=== PATIENT | male | born 1960 | race Caucasian/White ===

== ENCOUNTER 2017-05-16 11:43 | Emergency (ER) | payer SELFPAY ==
[~2017-05-16] VITALS: Ht 185.4 cm; Wt 106.1 kg
[2017-05-16 12:12] LABS: BASOPHILS % (AUTO) 1 % (0-10); EOSINOPHILS # (AUTO) 0.4 10^3/uL (0.0-0.3); EOSINOPHILS % (AUTO) 6 % (0-10); LYMPHOCYTES # (AUTO) 1.6 X 10^3 (1.0-4.0); LYMPHOCYTES % (AUTO) 24 % (12-44); MEAN CORPUSCULAR HEMOGLOBIN 29 PG (25-34); MEAN CORPUSCULAR HGB CONC 34 G/DL (32-36); MEAN CORPUSCULAR VOLUME 86 FL (80-99); MEAN PLATELET VOLUME 9.9 FL (7.4-10.4); MONOCYTES # (AUTO) 0.3 X 10^3 (0.0-1.0); MONOCYTES % (AUTO) 4 % (0-12); NEUTROPHILS # (AUTO) 4.3 X 10^3 (1.8-7.8); NEUTROPHILS % (AUTO) 66 % (42-75); PLATELET COUNT 252 10^3/uL (130-400); RED BLOOD COUNT 4.99 10^6/uL (4.35-5.85); RED CELL DISTRIBUTION WIDTH 14.3 % (10.0-14.5); WHITE BLOOD COUNT 6.6 10^3/uL (4.3-11.0)
[2017-05-16 12:29] LABS: ALBUMIN 4.2 GM/DL (3.2-4.5); BILIRUBIN,TOTAL 0.6 MG/DL (0.1-1.0); CALCIUM 9.6 MG/DL (8.5-10.1); CREATININE SERUM 1.82 MG/DL (0.60-1.30); POTASSIUM 3.9 MMOL/L (3.6-5.0); TOTAL PROTEIN 7.7 GM/DL (6.4-8.2)
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
[2017-05-16 13:17] VITALS: BP 147/99
== END 2017-05-16 13:16 | disposition home or self-care (01) ==
LOC: EDUNIT# 11:43 → ER 11:47
DX: I10 Essential (primary) hypertension (principal); F17.210 Nicotine dependence, cigarettes, uncomplicated
CPT/HCPCS: 36415; 80053; 85025

== ENCOUNTER → 2019-11-05 | Outpatient (CLI) | payer OTHER ==
[2019-11-05 09:13] LABS: ALANINE AMINOTRANSFERASE 21 U/L (0-55); ALBUMIN 4.9 GM/DL (3.2-4.5); ALKALINE PHOSPHATASE 128 U/L (40-136); BILIRUBIN,TOTAL 0.6 MG/DL (0.1-1.0); BUN/CREATININE RATIO 15; CALCIUM 9.8 MG/DL (8.5-10.1); CARBON DIOXIDE 19 MMOL/L (21-32); CHLORIDE 103 MMOL/L (98-107); CHOLESTEROL 237 MG/DL (< 200); CREATININE SERUM 2.81 MG/DL (0.60-1.30); GFR ESTIMATED 23; GLUCOSE 100 MG/DL (70-105); HDL CHOLESTEROL 37 MG/DL (40-60); POTASSIUM 4.8 MMOL/L (3.6-5.0); SODIUM 137 MMOL/L (135-145); TOTAL PROTEIN 8.7 GM/DL (6.4-8.2); TRIGLYCERIDES 217 MG/DL (<150); VLDL CHOLESTEROL 43 MG/DL (5-40)
== END ==
LOC: LAB 08:24
PROVIDERS: ATTEND Nurse Practitioner Family
DX: I10 Essential (primary) hypertension (principal)
CPT/HCPCS: 36415; 80053; 80061

== ENCOUNTER → 2019-11-21 | Outpatient (CLI) | payer OTHER ==
--- NOTE | 2019-11-21 09:26 | Diagnostic Imaging Report ---
PROCEDURE: CT chest without contrast. TECHNIQUE: Multiple contiguous axial images were obtained through the chest without the use of intravenous contrast. Auto Exposure Controls were utilized during the CT exam to meet ALARA standards for radiation dose reduction. All CT scans use one or more of the following dose optimizing techniques: automated exposure control, MA and/or KvP adjustment based on patient size and exam type or iterative reconstruction. INDICATION: Shortness of breath. COMPARISON: No prior studies are available for comparison. FINDINGS: No axillary lymphadenopathy is identified. There is a mildly prominent right paratracheal lymph node measuring 15 mm short axis. Radha is unremarkable. There are some coronary arterial calcifications present. No pericardial or pleural fluid is detected. The central airways are patent. No parenchymal consolidation is seen. There is some minimal atelectasis or scarring in the right lower lobe. Occasional subpleural micronodules in the right upper lobe are identified, 1-2 mm in size, nonspecific. Upper abdomen is unremarkable. IMPRESSION: Nonspecific mildly prominent right paratracheal lymph node. There are also several subpleural micronodules in the right upper lobe, nonspecific. Follow-up CT chest in six months could be performed to confirm stability. No other significant abnormality is detected. Dictated by: Dictated on workstation # [id number]
== END ==
LOC: RAD 07:54
PROVIDERS: ATTEND Nurse Practitioner Family
DX: R91.8 Other nonspecific abnormal finding of lung field (principal); R06.02 Shortness of breath
CPT/HCPCS: 71250

== ENCOUNTER → 2020-03-12 | Outpatient (CLI) | payer OTHER ==
--- NOTE | 2020-03-12 13:47 | Diagnostic Imaging Report ---
PROCEDURE: US Renal Bilateral. TECHNIQUE: Multiple real-time grayscale images were obtained over the kidneys in various projections bilaterally. INDICATION: Chronic kidney disease, stage IV COMPARISON: None available FINDINGS: The right kidney measures 11.2 x 5.1 x 5.7 cm. Normal corticomedullary differentiation. No hydronephrosis. A 3.1 x 2.7 cm rounded thin-walled anechoic cyst with posterior acoustic enhancement is noted within the mid right kidney. The left kidney measures 9.1 x 5.0 x 4.3 cm. Normal corticomedullary differentiation. No evidence of hydronephrosis or solid renal mass. The urinary bladder is unremarkable. The bilateral ureteral jets are visualized. No significant post void residual within the urinary bladder. IMPRESSION: Greater than 2 cm difference in size in the bilateral kidneys. This could relate to renal artery stenosis on the left. Alternatively, the right kidney may be enlarged secondary to potential duplication. If there is clinical concern for renal artery stenosis, renal Doppler ultrasound would be recommended. Right renal cyst. No evidence of hydronephrosis. No significant post void residual within the urinary bladder. Dictated by: Dictated on workstation # [id number]
== END ==
LOC: RAD 10:14
PROVIDERS: ATTEND Nurse Practitioner
DX: I12.9 Hypertensive chronic kidney disease with stage 1 through stage 4 chronic kidney disease, or unspecified chronic kidney disease (principal); N18.4 Chronic kidney disease, stage 4 (severe); R60.9 Edema, unspecified; F19.10 Other psychoactive substance abuse, uncomplicated; E78.5 Hyperlipidemia, unspecified; N28.1 Cyst of kidney, acquired
CPT/HCPCS: 76770

== ENCOUNTER 2020-03-29 11:14 | Emergency (ER) | payer SELFPAY ==
[~2020-03-29] VITALS: Ht 185.4 cm; Wt 111.3 kg
--- OUTSIDE RECORDS SUMMARY | 2020-03-29 11:18 | XMS REPORT ---
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 [employer] [facility] [employer] Address [address] [address] Care Team Providers Care Chargeback Specialist Name Role Phone KELLY LAWTON Unavailable KELLY LAWTON Unavailable JAMES DELEON Unavailable JAMES DELEON Unavailable JAMES DELEON Unavailable DAINA VALERIO Unavailable KATIA MORGAN Unavailable Unavailable BEATRICE GAVIN MD Unavailable Unavailable DAINA VALERIO Unavailable Unavailable DAINA DE LA CRUZ Unavailable Unavailable KATIA MORGAN Unavailable Unavailable Unavailable Unavailable MARYJANE CHAPARRO APRN Unavailable Unavailable Unavailable Unavailable Unavailable Unavailable Unavailable Unavailable Allergies Normalized Allergy Reported Date of Reaction(s) Care Provider Facility Allergy Type classification allergen Allergy Onset DA (1 source.) Unclassified No Known Drug 05-16-2017 - no inform nikos MONTALVO Not Available Allergies LUCERO LOPEZ ([id number]) Medications Current Medications Medication Ingredient Drug Dose Dates Status Sig Sig Care Class(es) (Normalized) (Original) Provid er 24 hr metoprolol beta-Adrene 25 mg 07-02-20 Active no Meto prolol no metoprolol Translation rgic 18 information Succinate E R name succinate s: [ Lawanda 25 MG Orally 25 mg Metoprolol Once a day 1 extended Succinate tablet 24h release ER 25 MG] Jun, oral tablet 30 day(s) (1 source.) Active Completed/Discontinued Medications Medication Ingredient Drug Dose Dates Status Sig Sig Care Class(es) (Normalized) (Original) Provid er hydroCHLORO hydroCHLORO Thiazide 06-21-20 Suspende no Lisino pril-H no thiazide thiazide / Diuretic, 18 d information ydrochlo [place] name 12.5 mg / lisinopril Angiotensin iazide lisinopril Translation Converting 10-12.5 MG 10 mg oral s: [ Enzyme Orally twice tablet (2 Lisinopril- Inhibitor a day 1 sources.) Hydrochloro tablet 12h thiazide Jun, 10-12.5 MG] 30 day(s) Not-Taking sulfamethox sulfamethox Dihydrofola 06-25-20 Suspende no Laura trim DS no azole 800 azole / te 18 - d information 800-160 MG na me mg / trimethopri Reductase 07-05-20 Orally Twice trimethopri m Inhibitor 18 a day 1 m 160 mg Translation Antibacteri tablet 12h oral tablet s: [ al, Jun, (2 Bactrim DS Sulfonamide Jun, sources.) 800-160 MG] Antimicrobi 10 day(s) al Not-Taking Problems Problem Normalized Date Last Normalized Normalized Provider Fa cility Classification Problem(s) Recorded Problem Problem Sta tus Duration Chronic kidney Chronic kidney 03-13-2020 - Chronic Active WYATT ID [facility] disease (12 disease, [address] [facility] sources.) unspecified of [facility] Translations: [place] ([address]35) [ - Chronic kidney disease, unspecified CKD stage N18.9, Chronic kidney disease, unspecified CKD stage, Chronic kidney disease, unspecified CKD stage, Chronic kidney disease, unspecified CKD stage, - Chronic kidney disease, unspecified CKD stage N18.9, CHRONIC KIDNEY DISEASE, STAGE 4 (SEVERE)] Other diseases Cyst of 03-13-2020 - Episodic Active [facility] Via of kidney and kidney, Christina CHAPARRO ureters (2 acquired [facility] Hospital - sources.) [place] ([address]70) Residual Edema, 03-13-2020 - Episodic Active MARYJANE [facility] V ia codes; unspecified Christina CHAPARRO unclassified [facility] Hospital - (2 sources.) [place] ([id number]) Other Elevated 03-12-2020 - Episodic Active KATIA [facility] V ia circulatory blood-pressure LUCERO LOPEZ disease (5 [facility] - sources.) without [place] diagnosis of (34353) hypertension Disorders of Hyperlipidemia 03-13-2020 - Chronic Active AMILCAR Al [facility] Via lipid , unspecified Christina CHAPARRO metabolism (2 [facility] Hospital - sources.) [place] (12592) Hypertension Hypertensive 03-13-2020 - Chronic Active MARYJANE [facility] Via with chronic kidney DOUTHChristina PIKE complications disease with [facility] Hospital - and secondary stage 1 [place] hypertension through stage (79528) (2 sources.) 4 chronic kidney disease, or unspecified chronic kidney disease Other male Impotence of Chronic Active DAINA VALERIO [facility] genital organic origin [address] [facility] disorders (1 Translations: of [facility] source.) [ Erectile [place] (24688) dysfunction, unspecified erectile dysfunction type] Other Lateral Episodic Active KELLY LAWTON [facility] connective epicondylitis, 60383 [facility] tissue disease right elbow of [facility] (20 sources.) Translations: [place] (36978) [ - Lateral epicondylitis of right elbow M77.11, - Right tennis elbow M77.11, - Lateral epicondylitis of right elbow M77.11, - Right tennis elbow M77.11] Other male Male erectile Chronic Active DAINA VALERIO [facility] genital [facility], [address] [facility] disorders (1 unspecified of [facility] source.) Translations: [place] ([address]76) [ - Erectile dysfunction, unspecified erectile dysfunction type N52.9] Substance-rela Nicotine 03-12-2020 - Chronic Active KATIA [facility] Via brandon disorders dependence LUCERO LOPEZ (17 sources.) Translations: Hospital - [ Cigarette [place] nicotine (39857) dependence without complication, - Cigarette nicotine dependence without complication F17.210, Cigarette nicotine dependence without complication, - Cigarette nicotine dependence without complication F17.210, OTHER PSYCHOACTIVE SUBSTANCE ABUSE, UNCO] Other lower Other 03-12-2020 - Episodic Active DAINA ABDI [facility] Via respiratory nonspecific , CFNP Christina disease (6 abnormal Hospital - sources.) finding of [place] lung field (77387) Other Pain in right Episodic Active KELLY LAWTON [facility] non-traumatic elbow [address] [facility] Center joint Translations: of [facility] disorders (5 [ - Right [place] (69778) sources.) elbow pain M25.521, - Right elbow pain M25.521] Other lower Shortness of 03-12-2020 - Episodic Active DAINA VALERIO [facility] Via respiratory breath , CFNP [place] disease (6 Hospital - sources.) [place] (88269) Procedures Procedure Normalized Procedure Procedure Result Performer Facility Date 07-02-2018 Drug test prsmv read no information no name [facility] direct [facility] obs pr [facility] (58775) 07-02-2018 Urnls dip stick/tablet no information no name [facility] rgnt auto w/o [facility] (68681) Immunizations The data below is from unstructured sources No Known Immunizations No Known Immunizations No Known Immunizations No Known Immunizations No Known Immunizations No Known Immunizations No Known Immunizations No Known Immunizations No Known Immunizations Results Test Name Value Interpretation Reference Range Date Time Fa cility (Normalized) (Normalized) (Medline Reference) urine drug screen (in house) on null URINE DRUG 12/2019 (no code) [facility] () URINE DRUG + (no code) [facility] HOUSE[facility] (89813) URINE DRUG Negative (no code) [facility] HOUSE[facility] () URINE DRUG Positive (no code) [facility]IN [facility] of HOUSE) [facility] (91472) URINE DRUG [id number] (no code) [facility]EN (IN [facility] of HOUSE) [facility] () ua long dip (in house) on null Glucose Test Negative (no code) [facility] strip mass conc Center of (U) [facility] (28761) Protein mass trace (no code) [facility] (72595) UA LONG DIP (IN 02/2019 (no code) [facility]) [facility] (00918) UA LONG DIP (IN clear (no code) [facility]) [facility] (20404) UA LONG DIP (IN yellow (no code) [facility]) [facility] (90122) UA LONG DIP (IN no (no code) [facility] HOUSE) [facility] (23852) UA LONG DIP (IN 1.015 (no code) [facility] HOUSE) [facility] (69634) UA LONG DIP (IN trace (no code) [facility]) [facility] (53811) UA LONG DIP (IN 5.0 (no code) [facility]) [facility] (40663) UA LONG DIP (IN [id number] (no code) [facility]) [facility] (48721) UA LONG DIP (IN 0.2 (no code) [facility]) [facility] (15541) not yet categorized on 2020-03-19 A:C (IN HOUSE) ~Clear~Ye (no code) [facility] Hea lth llow~80mg/L~200m [facility] g/L~30-300mg/g [facility] (44977) BLO Trace-lysed (no code) [facility] (09365) KET ~Clear~Ye (no code) [facility] Hea [facility] llow~nONE~Negati [facility] ve~Negative~Nega [facility] tive (08223) JACK Negative (no code) [facility] (67583) Lot # [id number] (no code) [facility] (84545) Lot # [id number] (no code) [facility] (56326) MICROALBUMIN Abnormal (no code) [facility] (35447) SG 1.015 (no code) [facility] (17576) URO 0.2 (no code) [facility] (46545) laboratory on 2020-03-19 Albumin 4.4 g/dL (N) 3.4 - 5.4 g/dL [facility] [Mass/Vol] [facility] (34164) Basophils (Bld) 0.05 10*3/uL (N) 0 - 0.3 10*3/uL [facility] [#/Vol] [facility] (48414) Basophils/100 0.9 % (N) 0.5 - 1 % [facility] alth WBC (Bld) [facility] (33655) Calcidiol 14 ng/mL (L) 20 - 50 ng/mL [facility] ealth [Mass/Vol] [facility] (81160) Calcium 9.1 mg/dL (N) 8.5 - 10.2 mg/dL [facility] [Mass/Vol] [facility] (48077) Chloride 100 mmol/L (N) 95 - 106 mmol/L [facility] [Moles/Vol] [facility] (34575) CO2 [Moles/Vol] 16 mmol/L (L) 23 - 29 mmol/L [facility] (56876) Creatinine 5.43 mg/dL (H) [facility] [Mass/Vol] [facility] (72986) Eosinophils 0.213 10*3/uL (N) 0.05 - 0.5 [facility] alth (Bld) [#/Vol] 10*3/uL [facility] (40557) Eosinophils/100 3.8 % (N) 1 - 4 % [facility] WBC (Bld) [facility] (77989) Erythrocyte 13.9 % (N) 11.6 - 14.6 % [facility] H ealth distribution [facility] (RBC) [facility] [Ratio] (49514) GFR/1.73 sq M 12 (L) 90 - 120 [facility] predicted among mL/min/{1.73_m2} mL/min/{1.73_m2} [place] [facility] blacks MDRD [facility] (S/P/Bld) [Vol (28775) rate/Area] GFR/1.73 sq 11 (L) 90 - 120 [facility] th M.predicted MDRD mL/min/{1.73_m2} mL/min/{1.73_m2} [facility] (S/P/Bld) [Vol [facility] rate/Area] (26792) Glucose 107 mg/dL (H) 60 - 125 mg/dL [facility] [Mass/Vol] [facility] (11150) Hematocrit (Bld) 33.9 % (L) 36.1 - 50.3 % [facility] [Volume [facility]] [facility] (53990) Hemoglobin (Bld) 11.7 g/dL (L) 12.1 - 17.2 g/dL [facility] [Mass/Vol] [facility] (97467) Lymphocytes 1.898 10*3/uL (N) 0.9 - 2.9 Community [facility]th (Bld) [#/Vol] 10*3/uL [facility] (71237) Lymphocytes/100 33.9 % (N) 20 - 40 % [facility] Health WBC (Bld) [facility] (61389) MCH (RBC) 31.3 pg (N) 27 - 31 pg [facility] [Entitic mass] [facility] (22105) MCHC (RBC) 34.5 g/dL (N) 32 - 36 g/dL [facility] He alth [Mass/Vol] [facility] (31591) MCV (RBC) 90.6 fL (N) 80 - 100 fL [facility] Hea lth [Entitic vol] [facility] (71837) Monocytes (Bld) 0.442 10*3/uL (N) 0.3 - 0.9 [facility] [#/Vol] 10*3/uL [facility] (97893) Monocytes/100 7.9 % (N) 2 - 8 % [facility] He alth WBC (Bld) [facility] (09306) Neutrophils 2.996 10*3/uL (N) 1.7 - 7 10*3/uL [facility] Health (Bld) [#/Vol] [facility] (63988) Neutrophils/100 53.5 % (N) 40 - 60 % [facility] WBC (Bld) [facility] (61603) Parathyrin.intac 256 pg/mL (H) 10 - 55 pg/mL [facility] ity Health t [Mass/Vol] [facility] (90798) pH (Bld) 5.0 [pH] (no code) 7.38 - 7.42 [pH] [facility] (89601) Phosphate 7.4 mg/dL (H) 2.4 - 4.1 mg/dL [facility] [Mass/Vol] [facility] (24444) Platelet mean 10.5 fL (N) 7.2 - 11.7 fL [facility] volume (Bld) [facility] [Entitic vol] [facility] (34451) Platelets (Bld) 318 10*3/uL (N) 150 - 450 [facility] [#/Vol] 10*3/uL [facility] (39506) Potassium 5.0 mmol/L (N) 3.7 - 5.2 mmol/L [facility] [Moles/Vol] [facility] (67694) Protein (U) Negative (no code) 0 - 20 mg/dL [facility] He alth [Mass/Vol] [facility] (87746) RBC (Bld) 3.74 10*6/uL (L) 4.2 - 6.1 [facility] Hea lth [#/Vol] 10*6/uL [facility] (79816) Sodium 133 mmol/L (L) 135 - 145 mmol/L [facility] [Moles/Vol] [facility] (15131) Urate [Mass/Vol] 12.3 mg/dL (H) 3.5 - 7.2 mg/dL [facility] (85747) Urea nitrogen 122 mg/dL (H) 7 - 20 mg/dL [facility] [Mass/Vol] [facility] (53986) Urea 22 mg/mg (N) 6 - 22 mg/mg [facility] alth nitrogen/Creatin [facility] [Mass ratio] [facility] (97463) WBC (Bld) 5.6 10*3/uL (N) 3.5 - 10.5 [facility] th [#/Vol] 10*3/uL [facility] (02480) laboratory on 2020-02-17 Albumin 4.7 g/dL (N) 3.4 - 5.4 g/dL [facility] [Mass/Vol] [facility] (17406) Appearance (U) CLEAR (N) [facility] (55749) Bacteria LM.HPF NONE SEEN (N) [facility] th (Urine sed) [facility] [#/Area] [facility] (27059) Basophils (Bld) 0.049 10*3/uL (N) 0 - 0.3 10*3/uL [facility] [#/Vol] [facility] (07150) Basophils/100 0.8 % (N) 0.5 - 1 % [facility] He alth WBC (Bld) [facility] (67558) Bilirubin Ql (U) Negative (N) [facility] (10154) Calcium 9.5 mg/dL (N) 8.5 - 10.2 mg/dL [facility] [Mass/Vol] [facility] (33047) Chloride 103 mmol/L (N) 95 - 106 mmol/L [facility] [Moles/Vol] [facility] (31257) CO2 [Moles/Vol] 18 mmol/L (L) 23 - 29 mmol/L [facility] (05124) Color (U) YELLOW (N) [facility] (21910) Creatinine (U) 155 mg/dL (N) [facility] [Mass/Vol] [facility] (94722) Creatinine 2.84 mg/dL (H) [facility] [Mass/Vol] [facility] (67890) Eosinophils 0.22 10*3/uL (N) 0.05 - 0.5 [facility] Hea lth (Bld) [#/Vol] 10*3/uL [facility] (95356) Eosinophils/100 3.6 % (N) 1 - 4 % [facility] WBC (Bld) [facility] (51281) Epithelial NONE SEEN (N) [facility] cells.squamous [facility] LM.HPF (Urine [facility] sed) [#/Area] (06296) Erythrocyte 15.6 % (H) 11.6 - 14.6 % Community [facility] ealth distribution [facility] width (RBC) [facility] [Ratio] (00484) GFR/1.73 sq M 27 (L) 90 - 120 [facility] He alth predicted among mL/min/{1.73_m2} mL/min/{1.73_m2} [facility] [place] MDRD [facility] (S/P/Bld) [Vol (73332) rate/Area] GFR/1.73 sq 24 (L) 90 - 120 [facility] M.predicted MDRD mL/min/{1.73_m2} mL/min/{1.73_m2} [facility] (S/P/Bld) [Vol [facility] rate/Area] (34059) Glucose 95 mg/dL (N) 60 - 125 mg/dL [facility] [Mass/Vol] [facility] (59386) Glucose Ql (U) Negative (N) [facility] (51458) Hematocrit (Bld) 36.9 % (L) 36.1 - 50.3 % [facility] [Volume [facility]] [facility] (60665) Hemoglobin (Bld) 13.0 g/dL (L) 12.1 - 17.2 g/dL [facility] [Mass/Vol] [facility] (61072) Hemoglobin Ql Negative (N) [facility] (U) [facility] (80328) Hyaline casts NONE SEEN (N) [facility] (Urine sed) [facility] [#/Area] [facility] (06581) Ketones Ql (U) Negative (N) [facility] (77661) Leukocyte Negative (N) [facility] esterase Test [facility] Ql (U) [facility] (06282) Lymphocytes 2.117 10*3/uL (N) 0.9 - 2.9 [facility] alth (Bld) [#/Vol] 10*3/uL [facility] (23154) Lymphocytes/100 34.7 % (N) 20 - 40 % [facility] WBC (Bld) [facility] (37754) MCH (RBC) 31.8 pg (N) 27 - 31 pg [facility] [Entitic mass] [facility] (18510) MCHC (RBC) 35.2 g/dL (N) 32 - 36 g/dL [facility] [Mass/Vol] [facility] (98255) MCV (RBC) 90.2 fL (N) 80 - 100 fL [facility] Hea lth [Entitic vol] [facility] (15082) Monocytes (Bld) 0.433 10*3/uL (N) 0.3 - 0.9 [facility] [#/Vol] 10*3/uL [facility] (70669) Monocytes/100 7.1 % (N) 2 - 8 % [facility] WBC (Bld) [facility] (65691) Neutrophils 3.282 10*3/uL (N) 1.7 - 7 10*3/uL [facility] (Bld) [#/Vol] [facility] (23302) Neutrophils/100 53.8 % (N) 40 - 60 % [facility] Health WBC (Bld) [facility] (88264) Nitrite Ql (U) Negative (N) [facility] (98206) pH (U) 5.5 [pH] (N) 4.6 - 8 [pH] [facility] (26476) Phosphate 3.4 mg/dL (N) 2.4 - 4.1 mg/dL [facility] [Mass/Vol] [facility] (30827) Platelet mean 10.7 fL (N) 7.2 - 11.7 fL [facility] volume (Bld) [facility] [Entitic vol] [facility] (93292) Platelets (Bld) 278 10*3/uL (N) 150 - 450 [facility] [#/Vol] 10*3/uL [facility] (97392) Potassium 5.0 mmol/L (N) 3.7 - 5.2 mmol/L [facility] [Moles/Vol] [facility] (87945) Protein (U) 22 mg/dL (N) 0 - 20 mg/dL [facility] [Mass/Vol] [facility] (37648) Protein Ql (U) Negative (N) [facility] (84440) Protein/Creatini 142 (H) [facility] ne (U) [Mass [facility] (06369) RBC (Bld) 4.09 10*6/uL (L) 4.2 - 6.1 [facility] [#/Vol] 10*6/uL [facility] (82033) RBC LM.HPF 0-2 (N) [facility] (Urine sed) [facility] [#/Area] [facility] (00235) Sodium 131 mmol/L (L) 135 - 145 mmol/L [facility] [Moles/Vol] [facility] (55126) Specific gravity 1.015 (N) [facility] Hea lth (U) [Rel [facility]] [facility] (27274) Urea nitrogen 41 mg/dL (H) 7 - 20 mg/dL [facility] [Mass/Vol] [facility] (96093) Urea 14 mg/mg (N) 6 - 22 mg/mg [facility] He alth nitrogen/Creatin [facility] [Mass ratio] [facility] (00047) WBC (Bld) 6.1 10*3/uL (N) 3.5 - 10.5 [facility] [#/Vol] 10*3/uL [facility] (39932) WBC LM.HPF 0-5 (N) [facility] (Urine sed) [facility] [#/Area] [facility] (67540) laboratory on 2020-01-17 Albumin 4.6 g/dL (N) 3.4 - 5.4 g/dL [facility] [Mass/Vol] [facility] (77631) Basophils (Bld) 0.032 10*3/uL (N) 0 - 0.3 10*3/uL [facility] [#/Vol] [facility] (12749) Basophils/100 0.6 % (N) 0.5 - 1 % [facility] alth WBC (Bld) [facility] (65189) Calcium 9.4 mg/dL (N) 8.5 - 10.2 mg/dL [facility] [Mass/Vol] [facility] (94009) Chloride 104 mmol/L (N) 95 - 106 mmol/L [facility] [Moles/Vol] [facility] (19385) Cholesterol 230 mg/dL (H) 180 - 200 mg/dL [facility] [Mass/Vol] [facility] (79579) Cholesterol in 30 mg/dL (L) [facility] h HDL [Mass/Vol] [facility] (00020) Cholesterol in 0 mg/dL (no code) 0 - 100 mg/dL [facility] LDL [Mass/Vol] [facility] (43887) Cholesterol non 200 mg/dL (H) [facility] HDL [Mass/Vol] [facility] (50694) Cholesterol.tota 7.7 {ratio} (H) [facility] lth l/Cholesterol in [facility] HDL [Mass ratio] [facility] (29838) CO2 [Moles/Vol] 23 mmol/L (N) 23 - 29 mmol/L [facility] (33769) Creatinine 2.73 mg/dL (H) [facility] h [Mass/Vol] [facility] (58465) Eosinophils 0.243 10*3/uL (N) 0.05 - 0.5 [facility] alth (Bld) [#/Vol] 10*3/uL [facility] (79178) Eosinophils/100 4.5 % (N) 1 - 4 % [facility] WBC (Bld) [facility] (90783) Erythrocyte 15.3 % (H) 11.6 - 14.6 % Community [facility] ealth distribution [facility] width (RBC) [facility] [Ratio] (82025) GFR/1.73 sq M 29 (L) 90 - 120 [facility] predicted among mL/min/{1.73_m2} mL/min/{1.73_m2} [place] [facility] blacks MDRD [facility] (S/P/Bld) [Vol (14672) rate/Area] GFR/1.73 sq 25 (L) 90 - 120 [facility] th M.predicted MDRD mL/min/{1.73_m2} mL/min/{1.73_m2} [facility] (S/P/Bld) [Vol [facility] rate/Area] (02934) Glucose 150 mg/dL (H) 60 - 125 mg/dL [facility] [Mass/Vol] [facility] (00697) Hematocrit (Bld) 39.9 % (N) 36.1 - 50.3 % [facility] ity Health [Volume [facility] (15412) Hemoglobin (Bld) 13.9 g/dL (N) 12.1 - 17.2 g/dL [facility] [Mass/Vol] [facility] (04979) Lymphocytes 1.642 10*3/uL (N) 0.9 - 2.9 Community [facility]th (Bld) [#/Vol] 10*3/uL [facility] (84870) Lymphocytes/100 30.4 % (N) 20 - 40 % [facility] Health WBC (Bld) [facility] (73068) MCH (RBC) 31.0 pg (N) 27 - 31 pg [facility] th [Entitic mass] [facility] (29860) MCHC (RBC) 34.8 g/dL (N) 32 - 36 g/dL [facility] He alth [Mass/Vol] [facility] (87041) MCV (RBC) 89.1 fL (N) 80 - 100 fL [facility] Hea lth [Entitic vol] [facility] (47185) Monocytes (Bld) 0.324 10*3/uL (N) 0.3 - 0.9 [facility] [#/Vol] 10*3/uL [facility] (01929) Monocytes/100 6.0 % (N) 2 - 8 % [facility] WBC (Bld) [facility] (70241) Neutrophils 3.159 10*3/uL (N) 1.7 - 7 10*3/uL [facility] Health (Bld) [#/Vol] [facility] (03361) Neutrophils/100 58.5 % (N) 40 - 60 % [facility] Health WBC (Bld) [facility] (27177) Phosphate 3.2 mg/dL (N) 2.4 - 4.1 mg/dL [facility] [Mass/Vol] [facility] ([id number]) Platelet mean 10.4 fL (N) 7.2 - 11.7 fL [facility] volume (Bld) [facility] [Entitic vol] [facility] (87798) Platelets (Bld) 252 10*3/uL (N) 150 - 450 [facility] [#/Vol] 10*3/uL [facility] (84510) Potassium 5.2 mmol/L (N) 3.7 - 5.2 mmol/L [facility] [Moles/Vol] [facility] (29317) RBC (Bld) 4.48 10*6/uL (N) 4.2 - 6.1 [facility] [#/Vol] 10*6/uL [facility] (23048) Sodium 133 mmol/L (L) 135 - 145 mmol/L [facility] [Moles/Vol] [facility] (60027) Triglyceride 496 mg/dL (H) 0 - 150 mg/dL [facility] [Mass/Vol] [facility] (37368) TSH Qn 0.79 m[IU]/L (N) 0.4 - 4 m[IU]/L [facility] (79231) Urea nitrogen 56 mg/dL (H) 7 - 20 mg/dL [facility] [Mass/Vol] [facility] (53489) Urea 21 mg/mg (N) 6 - 22 mg/mg [facility] alth nitrogen/Creatin [facility] [Mass ratio] [facility] (57113) WBC (Bld) 5.4 10*3/uL (N) 3.5 - 10.5 [facility] [#/Vol] 10*3/uL [facility] (17406) urinalysis on 2018-07-02 Protein mass trace (no code) [facility] conc (U) [facility] (91348) other on 2018-07-02 BLO trace (no code) [facility] (14939) KET 02/2019~clear~ye (no code) [facility]~no~negative [facility] ~negative~negati [facility] ve (41302) JACK Negative (no code) [facility] (98744) Lot # [id number] (no code) [facility] (23142) SG 1.015 (no code) [facility] (74185) TCA [id number]~12/26 (no code) [facility] 20~+~neg~positiv [facility] e~neg~neg~neg~ne [facility] g~neg~neg~neg~po (22696) sitive~neg~neg~n eg URO 0.2 (no code) [facility] (98493) hematology on 2018-07-02 pH (Bld) 5.0 [pH] (no code) 7.38 - 7.42 [pH] [facility] (37668) other on 2018-06-21 CRYSTALS, NONE SEEN (N) [facility] SYNOVIAL FLUID [facility] (15356) imm/path on 2018-06-21 Bacteria SEE NOTE (no code) [facility] identified Aer [facility] cx Nom (Unsp [facility] spec) ([id number]) Bacteria SEE NOTE (A) no information identified Anaer cx Nom (Unsp spec) Specimen source RIGHT ELBOW (no code) [facility] Nom (Unsp spec) FLUID [facility] (39151) other on 2017-05-16 Albumin/Globulin 1.3 {ratio} (no code) 1 - 2.5 {ratio} 7 Not Available [Mass ratio] 09:53-0400 (64405) Globulin (S) 3.4 g/dL (no code) 2 - 3.5 g/dL 05-16-2017 Not Av ailable [Mass/Vol] 09:53-0400 (54745) metabolic panel on 2017-05-16 Albumin 4.3 g/dL (no code) 3.4 - 5.4 g/dL 05-16-2017 Not Bambi ilable [Mass/Vol] 09:53-0400 (87851) ALP [Catalytic 92 U/L (no code) 44 - 147 U/L 05-16-2017 Not Available activity/Vol] 09:53-0400 (37471) ALT [Catalytic 16 U/L (no code) 4 - 40 U/L 05-16-2017 Not Av ailable activity/Vol] 09:53-0400 (06156) AST [Catalytic 37 U/L (no code) 10 - 34 U/L 05-16-2017 Not A vailable activity/Vol] 09: (71211) Bilirubin 0.3 mg/dL (no code) 0.1 - 1.2 mg/dL 05-16-2017 Not Av ailable [Mass/Vol] 09: (87382) Calcium 10.0 mg/dL (no code) 8.5 - 10.2 mg/dL 05-16-2017 Not Available [Mass/Vol] 09: (70395) Chloride 103 mmol/L (no code) 95 - 106 mmol/L 05-16-2017 Not A vailable [Moles/Vol] 09: (03195) CO2 [Moles/Vol] 15 mmol/L (L) 23 - 29 mmol/L 05-16-2017 N ot Available 09: () Creatinine 1.73 mg/dL (H) 05-16-2017 Not Available [Mass/Vol] 09: (09790) GFR/1.73 sq M 51 (L) 90 - 120 05-16-2017 Not Avai lable predicted among mL/min/{1.73_m2} mL/min/{1.73_m2} 09: (69235) blacks MDRD (S/P/Bld) [Vol rate/Area] GFR/1.73 sq M 44 (L) 90 - 120 05-16-2017 Not Avai lable predicted among mL/min/{1.73_m2} mL/min/{1.73_m2} 09: (84077) non-blacks MDRD (S/P/Bld) [Vol rate/Area] Glucose 88 mg/dL (no code) 60 - 125 mg/dL 05-16-2017 Not Bambi ilable [Mass/Vol] 09: (59135) Potassium 6.9 mmol/L (>) 3.7 - 5.2 mmol/L 05-16-2017 Not Available [Moles/Vol] 09: (93455) Protein 7.7 g/dL (no code) 6.4 - 8.3 g/dL 05-16-2017 Not Bambi ilable [Mass/Vol] 09: (57484) Sodium 142 mmol/L (no code) 135 - 145 mmol/L 05-16-2017 Not Available [Moles/Vol] 09: (42827) Urea nitrogen 15 mg/dL (no code) 7 - 20 mg/dL 05-16-2017 Not A vailable [Mass/Vol] : (83989) Urea 9 mg/mg (no code) 6 - 22 mg/mg 05-16-2017 Not Avail able nitrogen/Creatin 09: (55709) ine [Mass ratio] Vital Signs Vital Sign Value Interpretation Reference Date Time Care [facility] ider Facility (Normalized) (Normalized) Range BMI (Body Mass 31.22 kg/m2 (no code) 15 - 25 kg/m2 07-02-2018 N [facility] Index) 16:00-[address] ([address]) BMI (Body Mass 29.55 kg/m2 (no code) 15 - 25 kg/m2 06-25-2018 N [facility] Community Index) 12:20-[address] ([address]) Body 97.6 [degF] (no code) 97.8 - 99.0 07-02-2018 JAMES ALEJO JIMENEZ [facility] Temperature [degF] 16:00-[address] ([address]) Body 99 [degF] (no code) 97.8 - 99.0 06-25-2018 JAMES Hart [facility] Temperature [degF] 12:200400 [address] ([address]993) Height 183.52 cm (no code) cm 07-02-2018 [facility] 16:00-[address] ([address]) Height 183.52 cm (no code) cm 06-25-2018 [facility] 12:20-[address] ([address]) Pulse Oximetry 0 % (no code) 95 - 100 % 07-02-2018 JAMES TURNER [facility] 16:00-0400 [facility] [address] [facility] ([address]307) Weight 105.14 kg (no code) kg 07-02-2018 JAMES VAUGHAN [facility] 16:00-[address] ([address]) Weight 99.52 kg (no code) kg 06-25-2018 JAMES [facility] 12:20-[address] ([address]) Interventions No Information Plan of Treatment The data below is from unstructured sources Discharge Date 05/16/17 1:16pm Disposition 01 HOME, SELF-CARE Condition at Discharge Improved Instructions/Education Provided High Blood Pressure (DC) Prescriptions See Medication Section Referrals KELLY LAWTON MD Order Date: Primary Care Physician Address: [facility] [place], [place] [id number] Additional Instructions/Education Al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
--- OUTSIDE RECORDS SUMMARY | 2020-03-29 11:18 | XMS REPORT | Continuity of Care Document ---
Author Organization Unknown Address Unknown Phone Unavailable Allergies Active Description Code Type Severity Reaction Onset Reported/Identified Relationship to Patient Clinical Status Yes No Known Drug Allergies [id number] Drug Allergy Unknown N/A 05/16/2017 Medications There is no data. Problems Date Dx Coded Attending Type Code Diagnosis Diagnosed By 05/16/2017 KATIA MORGAN Ot F17.210 NICOTINE DEPENDENCE, CIGARETTES, UNCOMPL 05/16/2017 KATIA MORGAN Ot I 10 ESSENTIAL (PRIMARY) HYPERTENSION 05/16/2017 KATIA MORGAN Ot R03.0 ELEVATED BLOOD-PRESSURE READING, W/O RASHMI 05/18/2017 KATIA MORGAN Ot F17.210 NICOTINE DEPENDENCE, CIGARETTES, UNCOMPL 05/18/2017 KATIA MORGAN Ot I 10 ESSENTIAL (PRIMARY) HYPERTENSION 05/18/2017 KATIA MORGAN Ot R03.0 ELEVATED BLOOD-PRESSURE READING, W/O RASHMI 11/07/2019 VALERIO, DAINA R CFNP Ot I10 ESSENTIAL (PRIMARY) HYPERTENSION 11/22/2019 VALERIO, DAINA R CFNP Ot R06.02 SHORTNESS OF BREATH 11/22/2019 VALERIO, DAINA R CFNP Ot R91.8 OTHER NONSPECIFIC ABNORMAL FINDING OF ZANA 11/27/2019 VALERIO, DAINA R CFNP Ot R06.02 SHORTNESS OF BREATH 11/27/2019 VALERIO, DAINA R CFNP Ot R91.8 OTHER NONSPECIFIC ABNORMAL FINDING OF ZANA 12/17/2019 VALERIO, DAINA R CFNP Ot I10 ESSENTIAL (PRIMARY) HYPERTENSION 12/17/2019 VALERIO, DAINA R CFNP Ot R06.02 SHORTNESS OF BREATH 12/17/2019 VALERIO, DAINA R CFNP Ot R91.8 OTHER NONSPECIFIC ABNORMAL FINDING OF ZANA 12/17/2019 VALERIO, DAINA R CFNP Ot R06.02 SHORTNESS OF BREATH 12/17/2019 VALERIO, DAINA R CFNP Ot R91.8 OTHER NONSPECIFIC ABNORMAL FINDING OF ZANA 12/18/2019 DAINA VALERIO CFNP Ot R06.02 SHORTNESS OF BREATH 12/18/2019 DAINA VALERIO CFNP Ot R91.8 OTHER NONSPECIFIC ABNORMAL FINDING OF ZANA 03/12/2020 DAINA VALERIO CFNP Ot I10 ESSENTIAL (PRIMARY) HYPERTENSION 03/12/2020 DAINA VALERIO CFNP Ot R06.02 SHORTNESS OF BREATH 03/12/2020 DAINA VALERIO CFNP Ot R91.8 OTHER NONSPECIFIC ABNORMAL FINDING OF ZANA 03/13/2020 DODAVIDMARYJANE PIKE HOOKMAN Ot E78.5 HYPERLIPIDEMIA, UNSPECIFIED 03/13/2020 DOUTHMARYJANE PIKE HOOKMAN Ot F19.10 OTHER PSYCHOACTIVE SUBSTANCE ABUSE, UNCO 03/13/2020 MARYJANE CHAPARRO HOOKMAN Ot I12.9 HYPERTENSIVE CHRONIC KIDNEY DISEASE W ST 03/13/2020 DOMARYJANE COURTNEY HOOKMAN Ot N18.4 CHRONIC KIDNEY DISEASE, STAGE 4 (SEVERE) 03/13/2020 MARYJANE CHAPARRO HOOKMAN Ot N28.1 CYST OF KIDNEY, ACQUIRED 03/13/2020 DOUTHMARYJANE PIKE HOOKMAN Ot R60.9 EDEMA, UNSPECIFIED 03/17/2020 DOMARYJANE COURTNEY HOOKMAN Ot E78.5 HYPERLIPIDEMIA, UNSPECIFIED 03/17/2020 DOUTHMARYJANE PIKE HOOKMAN Ot F19.10 OTHER PSYCHOACTIVE SUBSTANCE ABUSE, UNCO 03/17/2020 MARYJANE CHAPARRO HOOKMAN Ot I12.9 HYPERTENSIVE CHRONIC KIDNEY DISEASE W ST 03/17/2020 MARYJANE CHAPARRO HOOKMAN Ot N18.4 CHRONIC KIDNEY DISEASE, STAGE 4 (SEVERE) 03/17/2020 UTHMARYJANE PIKE HOOKMAN Ot N28.1 CYST OF KIDNEY, ACQUIRED 03/17/2020 DOUTHMARYJANE PIKE HOOKMAN Ot R60.9 EDEMA, UNSPECIFIED Procedures There is no data. Results Test Result Range Complete blood count (CBC) with automate d white blood cell (WBC) differential - 05/16/17 12:03 Blood leukocytes automated count (number/volume) 6.6 10*3/uL 4.3-11.0 Blood erythrocytes automated count (number/volume) 4.99 10*6/uL 4.35-5.85 Venous blood hemoglobin measurement (mass/volume) 14.6 g/dL 13.3-17.7 Blood hematocrit (volume fraction) 43 % 40-54 Automated erythrocyte mean corpuscular volume 86 [ foz_us] 80-99 Automated erythrocyte mean corpuscular h emoglobin (mass per erythrocyte) 29 pg 25-34 Automated erythrocyte mean corpuscular h emoglobin concentration measurement (mass/volume) 34 g/dL 32-36 Automated erythrocyte distribution width ratio 14. 3 % 10.0- 14.5 Automated blood platelet count (count/volume) 252 10*3/uL 130-400 Automated blood platelet mean volume measurement 9.9 [foz_us] 7.4-10.4 Automated blood neutrophils/100 leukocytes 66 % 42-75 Automated blood lymphocytes/100 leukocytes 24 % 12-44 Blood monocytes/100 leukocytes 4 % 0-12 Automated blood eosinophils/100 leukocytes 6 % 0-10 Automated blood basophils/100 leukocytes 1 % 0-10 Blood neutrophils automated count (number/volume) 4.3 10*3 1.8-7.8 Blood lymphocytes automated count (number/volume) 1.6 10*3 1.0-4.0 Blood monocytes automated count (number/volume) 0. 3 10*3 0.0-1.0 Automated eosinophil count 0.4 10*3/uL 0 .0-0.3 Automated blood basophil count (count/volume) 0.0 10*3/uL 0.0-0.1 Comprehensive metabolic panel - 05/16/17 12:03 Serum or plasma sodium measurement (moles/volume) 138 mmol/L 135-145 Serum or plasma potassium measurement (moles/volume) 3.9 mmol/L 3.6-5.0 Serum or plasma chloride measurement (moles/volume) 104 mmol/L 98-107 Carbon dioxide 22 mmol/L 21-32 Serum or plasma anion gap determination (moles/volume) 12 mmol/L 5-14 Serum or plasma urea nitrogen measurement (mass/volume ) 16 mg/dL 7-18 Serum or plasma creatinine measurement (mass/volume) 1.82 mg/dL 0.60-1.30 Serum or plasma urea nitrogen/creatinine mass ratio 9 NRG Serum or plasma creatinine measurement w ith calculation of estimated glomerular filtration rate 39 NRG Serum or plasma glucose measurement (mass/volume) 165 mg/dL 70-105 Serum or plasma calcium measurement (mass/volume) 9.6 mg/dL 8.5-10.1 Serum or plasma total bilirubin measurement (mass/volu me) 0.6 mg/dL 0.1-1.0 Serum or plasma alkaline phosphatase genevieve surement (enzymatic activity/volume) 94 U/L 40-136 Serum or plasma aspartate aminotransfera se measurement (enzymatic activity/volume) 18 U/L 5-34 Serum or plasma alanine aminotransferase measurement (enzymatic activity/volume) 18 U/L 0-55 Serum or plasma protein measurement (mass/volume) 7.7 g/dL 6.4-8.2 Serum or plasma albumin measurement (mass/volume) 4.2 g/dL 3.2-4.5 Comprehensive metabolic panel - 11/05/19 08:51 Serum or plasma sodium measurement (moles/volume) 137 mmol/L 135-145 Serum or plasma potassium measurement (moles/volume) 4.8 mmol/L 3.6-5.0 Serum or plasma chloride measurement (moles/volume) 103 mmol/L 98-107 Carbon dioxide 19 mmol/L 21-32 Serum or plasma anion gap determination (moles/volume) 15 mmol/L 5-14 Serum or plasma urea nitrogen measurement (mass/volume ) 43 mg/dL 7-18 Serum or plasma creatinine measurement (mass/volume) 2.81 mg/dL 0.60-1.30 Serum or plasma urea nitrogen/creatinine mass ratio 15 NRG Serum or plasma creatinine measurement w ith calculation of estimated glomerular filtration rate 23 NRG Serum or plasma glucose measurement (mass/volume) 100 mg/dL 70-105 Serum or plasma calcium measurement (mass/volume) 9.8 mg/dL 8.5-10.1 Serum or plasma total bilirubin measurement (mass/volu me) 0.6 mg/dL 0.1-1.0 Serum or plasma alkaline phosphatase genevieve surement (enzymatic activity/volume) 128 U/L 40-136 Serum or plasma aspartate aminotransfera se measurement (enzymatic activity/volume) 22 U/L 5-34 Serum or plasma alanine aminotransferase measurement (enzymatic activity/volume) 21 U/L 0-55 Serum or plasma protein measurement (mass/volume) 8.7 g/dL 6.4-8.2 Serum or plasma albumin measurement (mass/volume) 4.9 g/dL 3.2-4.5 Lipid 1996 panel - 11/05/19 08:51 Serum or plasma triglyceride measurement (mass/volume) 217 mg/dL <150 Serum or plasma cholesterol measurement (mass/volume) 237 mg/dL < 200 Serum or plasma cholesterol in HDL measurement (mass/v olume) 37 mg/dL 40-60 Cholesterol in LDL [mass/volume] in serum or plasma by direct assay 164 mg/dL 1-129 Serum or plasma cholesterol in VLDL measurement (mass/ volume) 43 mg/dL 5-40 Encounters ACCT No. Visit Date/Time Discharge Status Pt. Type Provider Facility Loc./Unit Complaint [id number] 03/12/2020 10:14:00 23:59:59 CLS Outpatient MARYJANE CHAPARRO APRN [facility] RAD CKD STAGE IV [id number] 11/21/2019 07:54:00 020 23:59:59 CLS Outpatient DAINA VALERIO [facility] RAD SOB [id number] 11/05/2019 08:24:00 019 23:59:59 CLS Outpatient DAINA VALERIO [facility] LAB HYPERTENSION [id number] 05/16/2017 11:47:00 017 13:16:00 DIS Emergency KATIA MORGAN [facility] ER HIGH POTASSIUM
[2020-03-29] MEDS ORDERED: PRD20T PO (11:26)
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
[2020-03-29] MEDS ORDERED: diphenhydrAMINE 50 MG/ML INJ (BENADRYL) IM ONE (11:30)
[2020-03-29] MEDS ORDERED: DEXAMETHASONE 10 MG/ML (DECADRON) 1 ML VIAL IM ONE (11:30)
[2020-03-29] MEDS ORDERED: LOSA50TA63 PO (11:32)
[2020-03-29 12:04] VITALS: BP 149/89
== END 2020-03-29 12:03 | disposition home or self-care (01) ==
LOC: ER 11:14 → EDUNIT# 11:14 → ER 12:03
DX: T78.3XXA Angioneurotic edema, initial encounter (principal)
CPT/HCPCS: 99284

== ENCOUNTER → 2021-01-26 | Outpatient (CLI) | payer SELFPAY ==
[~2021-01-26] MED LIST: LOSA50TA63 PO; PRD20T PO
[2021-01-26 11:58] LABS: ALANINE AMINOTRANSFERASE 23 U/L (0-55); ALBUMIN 4.8 GM/DL (3.2-4.5); ALKALINE PHOSPHATASE 147 U/L (40-136); BILIRUBIN,TOTAL 0.4 MG/DL (0.1-1.0); BUN/CREATININE RATIO 12; CALCIUM 10.1 MG/DL (8.5-10.1); CARBON DIOXIDE 23 MMOL/L (21-32); CHLORIDE 101 MMOL/L (98-107); CREATININE SERUM 2.47 MG/DL (0.60-1.30); GFR ESTIMATED 27; GLUCOSE 102 MG/DL (70-105); POTASSIUM 5.7 MMOL/L (3.6-5.0); SODIUM 133 MMOL/L (135-145); TOTAL PROTEIN 8.9 GM/DL (6.4-8.2)
--- NOTE | 2021-01-26 13:53 | Diagnostic Imaging Report ---
PROCEDURE: CT neck soft tissue without contrast. TECHNIQUE: Multiple contiguous axial images were obtained through the neck without the use of intravenous contrast. Auto Exposure Controls were utilized during the CT exam to meet ALARA standards for radiation dose reduction. INDICATION: Difficulty swallowing. COMPARISON: I have no relevant comparison. FINDINGS: The visualized orbits, paranasal sinuses, and intracranial contents are unremarkable. The visualized mastoids are clear. The central skull base is intact. There are degenerative changes to the lower cervical spine without high-grade stenosis. No bony destructive process or fracture. There are heavy vascular calcifications in the carotid bulbs and bifurcations, greater right. The prevertebral and retropharyngeal spaces are normal. The nasopharynx, oropharynx, and hypopharynx appear unremarkable. No pathological-appearing cervical lymph nodes. No mass or fluid collection is identified. No focal inflammatory process. The parotid, submandibular, and thyroid glands are unremarkable. The thoracic inlet, supraclavicular fossa, and visualized pulmonary apices are remarkable. IMPRESSION: This is an unremarkable soft tissue neck CT. No adenopathy, mass, fluid collection, or airway embarrassment. Dictated by: Dictated on workstation # [id number]
== END ==
LOC: RAD 10:12
PROVIDERS: ATTEND Nurse Practitioner Family
DX: R22.1 Localized swelling, mass and lump, neck (principal)
CPT/HCPCS: 36415; 70490; 80053

== ENCOUNTER 2022-01-09 17:19 | Emergency (ER) | payer MEDICAID ==
[~2022-01-09] VITALS: Ht 182 cm; Wt 113.0 kg
[2022-01-09] MEDS ORDERED: RT--FLUTICASONE/SALMETEROL 113-14 (AIRDUO RespiCLICK) IH ONE (18:23)
--- NOTE | 2022-01-09 18:28 | Diagnostic Imaging Report ---
INDICATION: Fever and dyspnea. EXAMINATION: Single AP view of the chest was obtained. FINDINGS: There is mild blunting of the right costophrenic sulcus. Heart size is at the upper limits of normal. There is no evidence of pneumothorax or consolidation. IMPRESSION: Mild cardiomegaly with blunting of the right costophrenic sulcus which could be due to atelectasis or mild pleural effusion. Dictated by: Dictated on workstation # [id number]
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
[2022-01-09] MEDS ORDERED: ACETAMINOPHEN 500 MG TAB (TYLENOL) ONE (18:37)
[2022-01-09] MEDS ORDERED: IBUPROFEN 800 MG (MOTRIN) TAB PO ONE ×2 (18:37→18:45)
[2022-01-09] MEDS ORDERED: ACETAMINOPHEN 500 MG TAB (TYLENOL) PO ONE (18:45)
[2022-01-09] MEDS ORDERED: OSELTAMIVIR 75 MG (TAMIFLU) CAPSULE PO ONE (19:00)
[2022-01-09 19:47] LABS: BASOPHILS # (AUTO) 0.1 10^3/uL (0.0-0.1); BASOPHILS % (AUTO) 1 % (0-10); EOSINOPHILS # (AUTO) 0.2 10^3/uL (0.0-0.3); EOSINOPHILS % (AUTO) 2 % (0-10); HEMATOCRIT 43 % (40-54); HEMOGLOBIN 14.4 g/dL (13.3-17.7); LYMPHOCYTES # (AUTO) 0.9 10^3/uL (1.0-4.0); LYMPHOCYTES % (AUTO) 13 % (12-44); MEAN CORPUSCULAR HEMOGLOBIN 30 pg (25-34); MEAN CORPUSCULAR HGB CONC 34 g/dL (32-36); MEAN CORPUSCULAR VOLUME 89 fL (80-99); MEAN PLATELET VOLUME 9.7 fL (9.0-12.2); MONOCYTES # (AUTO) 0.5 10^3/uL (0.0-1.0); MONOCYTES % (AUTO) 7 % (0-12); NEUTROPHILS # (AUTO) 5.3 10^3/uL (1.8-7.8); NEUTROPHILS % (AUTO) 77 % (42-75); PLATELET COUNT 186 10^3/uL (130-400); WHITE BLOOD COUNT 6.9 10^3/uL (4.3-11.0)
[2022-01-09 19:51] LABS: BILIRUBIN,URINE NEGATIVE (NEGATIVE); CLARITY,URINE CLEAR; COLOR,URINE YELLOW; GLUCOSE, URINE (UA) NEGATIVE (NEGATIVE); KETONES,URINE NEGATIVE (NEGATIVE); LEUKOCYTE ESTERASE ,URINE NEGATIVE (NEGATIVE); NITRITE,URINE NEGATIVE (NEGATIVE); PROTEIN,URINE 1+ (NEGATIVE)
[2022-01-09 19:56] LABS: ALBUMIN 4.2 GM/DL (3.2-4.5)
[2022-01-09 19:58] LABS: CALCIUM 9.3 MG/DL (8.5-10.1); PROTHROMBIN TIME PATIENT 13.9 SEC (12.2-14.7)
[2022-01-09 19:59] LABS: TOTAL PROTEIN 7.5 GM/DL (6.4-8.2)
[2022-01-09 20:01] LABS: BILIRUBIN,TOTAL 0.6 MG/DL (0.1-1.0)
[2022-01-09 20:03] LABS: BACTERIA,URINE TRACE /HPF; RBC,URINE RARE /HPF; SQUAMOUS EPITHELIAL CELL,UR RARE /HPF; WBC,URINE RARE /HPF
[2022-01-09 20:03] LABS: CREATININE SERUM 2.31 MG/DL (0.60-1.30)
[2022-01-09 20:07] LABS: MAGNESIUM 1.9 MG/DL (1.6-2.4)
[2022-01-09 20:19] LABS: AMPHETAMINE SCREEN, URINE POSITIVE (NEGATIVE); BARBITURATE SCREEN URINE NEGATIVE (NEGATIVE); BENZODIAZEPINES SCREEN URINE NEGATIVE (NEGATIVE); CANNABINOID SCREEN, URINE NEGATIVE (NEGATIVE); COCAINE SCREEN URINE NEGATIVE (NEGATIVE); METHADONE STAT NEGATIVE (NEGATIVE); METHAMPHETAMINE SCREEN URINE S POSITIVE (NEGATIVE); OPIATE SCREEN URINE NEGATIVE (NEGATIVE); OXYCODONE STAT NEGATIVE (NEGATIVE); PROPOXYPHENE STAT NEGATIVE (NEGATIVE); TRICYCLIC ANTIDEPRESSANTS SCRE NEGATIVE (NEGATIVE)
[2022-01-09] MEDS ORDERED: OSLT75C PO (20:23)
[2022-01-09] MEDS ORDERED: METH4TAB PO (20:23)
[2022-01-09 20:35] VITALS: BP 127/89
[2022-01-09] MEDS ORDERED: RT--FLUTICASONE/SALMETEROL 113-14 (AIRDUO RespiCLICK) IH SCH (21:00)
== END 2022-01-09 20:39 | disposition home or self-care (01) ==
LOC: EDUNIT# 17:19 → ER 17:21
DX: J10.1 Influenza due to other identified influenza virus with other respiratory manifestations (principal); J44.9 Chronic obstructive pulmonary disease, unspecified; N18.9 Chronic kidney disease, unspecified; F19.90 Other psychoactive substance use, unspecified, uncomplicated; F17.210 Nicotine dependence, cigarettes, uncomplicated; Z20.822 Contact with and (suspected) exposure to COVID-19
CPT/HCPCS: 36415; 71045; 80053; 80306; 81000; 83605; 83735; 84145; 85025; 85610; 85730; 87040; 87088; 87636; 93041

== ENCOUNTER 2022-01-11 14:14 | Inpatient (IN) | payer MEDICAID ==
[~2022-01-11] VITALS: Ht 185 cm; Wt 118.9 kg
[2022-01-11] VITALS (18 sets, daily range): BP systolic 91–117; BP diastolic 56–82
[~2022-01-11 14:14] MED LIST changes: +METH4TAB PO; +OSLT75C PO
--- NOTE | 2022-01-11 14:23 | Progress Note ---
Progress Note [facility] ER note 01/11/22: 61-year-old male brought to the emergency department by a friend with chief complaint of shortness of breath. Patient states that it worsened this morning while trying to get dressed. He states he was to get ready and get up to [place] to fill the prescriptions that he was given for this current illness. Patient states that he presented to [facility] on Monday and was diagnosed with influenza and COPD. Patient was given a steroid pack and Tamiflu but states that he has been unable to fill it. He is planning to go on going up this morning to get his meds but was too short of breath and came here for treatment. Patient states that he has inhalers at home but is confused as to what he is has because he tells me albuterol but on his list is Symbicort and Flovent. Patient states that he does not have oxygen at home. [facility] He states he has been running fevers off and on. Does state that he has some chest discomfort but states that this is due to all the coughing that he has been doing. He is coughing phlegm up when he does cough. Does complain of some abdominal discomfort. Patient is diaphoretic upon presentation. Patient states that the same symptoms is what took him to [facility] on Monday. Patient is a current smoker. REVIEW OF SYSTEMS Review of Systems Constitutional: Positive fordiaphoresisand fever. Negative foractivity changeand appetite change. HENT: Negative forear pain,postnasal drip,rhinorrheaand sore throat. Respiratory: Positive forcough,chest tightness,shortness of breathand wheezing. Cardiovascular: Positive forchest pain. Negative forpalpitationsand leg swelling. Gastrointestinal: Positive forabdominal pain. Negative fordiarrhea,nauseaand vomiting. Musculoskeletal: Negative forgait problem. Skin: Negative forrash. Neurological: Negative fordizziness,weaknessand headaches. PAST MEDICAL HISTORY REVIEWED MEDICAL: Patienthas a past medical history of COPD (chronic obstructive pulmonary disease), CRI (chronic renal insufficiency), HTN (hypertension), and Patient denies relevant medical history. SURGICAL: Patienthas a past surgical history that includes chg anesth,facial bone surgery (1980); pr extensive chest wall surgery (1984); and hernia repair (2021). FAMILY: Patient'sfamily history includes Heart Disease in his mother; High Cholesterol in his mother; Hypertension in his mother; Stroke in his father. SOCIAL: reports that he has been smoking. He has been smoking about 1.00 pack per day. He has never used smokeless tobacco. He reports previous drug use. He reports that he does not drink alcohol. No history on file. Social History Other Topics Concern Not on file ALLERGIES . Codeine and Lisinopril HOME MEDICATIONS . Patient's Home Medications Current Home Medications AMLODIPINE (NORVASC) 10 MG TABLET BUDESONIDE-FORMOTEROL (SYMBICORT) 160-4.5 MCG/ACTUATION HFA AEROSOL INHALER CARVEDILOL (COREG) 6.25 MG TABLET FLUTICASONE PROPIONATE (FLOVENT HFA) 110 MCG/ACTUATION HFA AEROSOL INHALER FUROSEMIDE (LASIX) 20 MG TABLET HYDROCODONE-ACETAMINOPHEN (NORCO) 7.5-325 MG TABLET HYDROCODONE-ACETAMINOPHEN 7.5-300 MG TABLET NALOXONE (NARCAN) 4 MG/SPRAY SPRAY, NON-AEROSOL OMEPRAZOLE (PRILOSEC) 20 MG CAPSULE, DELAYED RELEASE(E.C.) TAMSULOSIN (FLOMAX) 0.4 MG CAPSULE TERAZOSIN (HYTRIN) 5 MG CAPSULE Medications Modified during this Encounter Medications Discontinued during this Encounter Objective PHYSICAL EXAM INITIAL VS . BP: (!) 146/77(01/11/22949), Heart Rate: (!) 128 bpm(01/11/2249), Resp: 26 (01/11/22949), Pulse: (!) 114(01/11/22 1023), Temp: 99.1 F (37.3 C) (01/11/22949), Temp src: Temporal (01/11/22949), SpO2: 92 % (01/11/2243), Height: 6' 1" (185.4 cm) (01/11/22949), Weight: 113.4 kg (250 lb) (01/11/22949), BMI (Calculated): 32.99 (01/11/22949) Physical Exam Vitalsand nursing notereviewed. Constitutional: General: He is in acute distress. Appearance: He is obese. He isdiaphoretic. He is nottoxic-appearing. HENT: Head: Normocephalicand atraumatic. Mouth/Throat: Mouth: Mucous membranes are moist. Pharynx: Oropharynx is clear. Cardiovascular: Rate and Rhythm: Regular rhythm.Tachycardiapresent. Heart sounds: Normal heart sounds. Pulmonary: Effort: No tachypnea,bradypneaor accessory muscle usage. Breath sounds: Examination of the right-upper field reveals wheezing. Examination of the left-upper field revealswheezing. Examination of the right- middle field revealswheezing. Examination of the left-middle field revealswheezing. Examination of the right-lower field revealswheezingand rhonchi. Examination of the left-lower field revealswheezingand rhonchi.Wheezingand rhonchipresent. Abdominal: General: Bowel sounds are normal. Palpations: Abdomen is soft. There is nomass. Tenderness: There is no abdominal tenderness. Musculoskeletal: Cervical back: Normal range of motionand neck supple. Skin: General: Skin is warm. Capillary Refill: Capillary refill takes less than 2 seconds. Neurological: General: No focal deficitpresent. Mental Status: He is alertand oriented to person, place, and time. DIAGNOSTICS LAB: No data to display RADIOLOGY: No orders to display EKG: PROCEDURES EKG 12 lead Date/Time:01/11/2022 10:40 AM Performed by:Jyoti Sarmiento PA Authorized by:Jyoti Sarmiento PA Rate: ECG rate: 110 ECG rate assessment: tachycardic Rhythm: Rhythm Origin: sinus [place]: QRS axis: Normal Intervals: normal QRSTT: QRSTT changes: No Comments: No acute ST changes MEDICAL DECISION MAKING AND PLAN OF CARE [facility] MEDS ADMINISTERED Medications Administered During the ED Stay from 01/11/2022 0944 to 01/11/2022 1040 Date/Time Order Dose Route Action 01/11/2022 1023 ipratropium-albuteroL (DUONEB) 0.5 mg-3 mg(2.5 mg base)/3 mL inhalation solution 3 mL 3 mL Inhalation Given NEW PRESCRIPTIONS . New Prescriptions for this Encounter LAST VS . BP: (!) 146/77(01/11/22 0950), Heart Rate: (!) 142 bpm(01/11/22 0950), Resp: 20 (01/11/22 1023), Pulse: (!) 114(01/11/22 1023), Temp: 99.1 F (37.3 C) (01/11/2250), Temp src: Temporal (01/11/2250), SpO2: 97 % (01/11/22 1023) CLINICAL IMPRESSION Final diagnoses: None DISPOSITION, EDUCATION AND MEDICATION RECONCILIATION Medications reconciled. See after visit summary for patient education on discharged patients. Results for PILAR DAVENPORT ( ) as of 01/11/2022 14:23 Ref. Range 01/11/2022 10:29 WBC Latest Ref Range: 4.0 - 10.5 K/uL 6.4 RBC Latest Ref Range: 4.00 - 6.00 M/uL 4.87 HEMOGLOBIN Latest Ref Range: 12.5 - 18.0 g/dL 14.2 HEMATOCRIT Latest Ref Range: 36.0 - 52.0 % 42.8 MCV Latest Ref Range: 78.0 - 100.0 fL 87.9 MCH Latest Ref Range: 27.0 - 34.0 pg 29.2 MCHC Latest Ref Range: 31.0 - 37.0 g/dL 33.2 PLATELETS Latest Ref Range: 150 - 450 K/uL 181 MPV Latest Ref Range: 9.3 - 12.4 fL 9.9 RDW Latest Ref Range: 11.6 - 14.8 % 14.8 RDW-STDEV Latest Ref Range: 37.1 - 48.7 fL 47.0 SEGMENTED NEUTROPHILS Latest Ref Range: 37 - 80 % 92 (H) LYMPHOCYTES RELATIVE Latest Ref Range: 10 - 50 % 7 (L) MONOCYTES RELATIVE Latest Ref Range: 0 - 12 % 1 NEUTROPHILS ABSOLUTE COUNT Latest Ref Range: 2.00 - 6.90 K/uL 5.89 LYMPHOCYTES ABSOLUTE Latest Ref Range: 0.60 - 3.40 K/uL 0.45 (L) MONOCYTES ABSOLUTE Latest Ref Range: 0.00 - 1.00 K/uL 0.06 PLATELET EST. Unknown Adequate TOTAL CELLS COUNTED IN DIFF Unknown 100 RBC MORPHOLOGY Unknown Normal PROBNP, N TERMINAL Latest Ref Range: 0 - 125 pg/mL 1,155 (H) TROPONIN T, BASELINE 5TH GEN Latest Ref Range: <=15 ng/L 32 (H) SODIUM Latest Ref Range: 136 - 145 mmol/L 135 (L) POTASSIUM Latest Ref Range: 3.5 - 5.1 mmol/L 3.5 CHLORIDE Latest Ref Range: 98 - 107 mmol/L 100 CO2 Latest Ref Range: 22 - 29 mmol/L 23 CALCIUM Latest Ref Range: 8.6 - 10.0 mg/dL 9.0 BUN Latest Ref Range: 6 - 20 mg/dL 27 (H) CREATININE Latest Ref Range: 0.67 - 1.17 mg/dL 2.11 (H) GFR Latest Ref Range: >=60 mL/min/1.73 sq meter 35 (L) GLUCOSE Latest Ref Range: 74 - 99 mg/dL 132 (H) ANION GAP Latest Units: mmol/L 12 PROTIME Latest Ref Range: 11.8 - 14.6 Seconds 12.6 INR Latest Ref Range: 0.9 - 1.2 0.9 PTT Latest Ref Range: 25.0 - 35.0 seconds 24.7 (L) PH ARTERIAL Latest Ref Range: 7.35 - 7.45 7.38 PCO2 ARTERIAL Latest Ref Range: 35 - 45 mm Hg 46 (H) PO2 ARTERIAL Latest Ref Range: 80 - 105 mm Hg 34 (LL) HCO3 ARTERIAL Latest Ref Range: 22 - 26 mmol/L 27 (H) BASE EXCESS ABG Latest Ref Range: -2.0 - 3.0 mmol/L 2.0 O2 SAT EST ARTERIAL Latest Ref Range: 95 - 98 % 65 (L) FIO2 Latest Ref Range: 21.0 - 100.0 % 28.0 OXYGEN MODE Unknown Nasal Cannula LITER FLOW Latest Units: L/min 2.0 P/F RATIO ARTERIAL Unknown 121 XR CHEST PA AND LATERAL 2 VW Dictation location 11 History: See Reason for Exam Shortness of Breath SOB. Comparison: 04/02/2020. Heart pulmonary vasculature, mediastinum and trachea are normal. Prominent bilateral bronchovascular markings. Radha within normal limits. Atelectasis within the right lower lobe. New left perihilar infiltration is likely pneumonia. Skeletal structures are within normal limits for the patient's age. Impression: 1. Prominent bronchovascular markings. 2. New right basilar atelectasis. 3. New left perihilar infiltration compatible with pneumonia. BEAR JAIME DO Jan 11, 2022 14:23
[2022-01-11] MEDS ORDERED: MELATONIN 3 MG TABLET PO PRN (15:15)
[2022-01-11] MEDS ORDERED: MILK OF MAGNESIA 400 MG/5 ML 30 ML UDC PO PRN (15:15)
[2022-01-11] MEDS ORDERED: morphine INJ 4 MG/ML 1 ML (VIAL/SYRINGE) IV PRN (15:15)
[2022-01-11] MEDS ORDERED: CALCIUM CARBONATE 500 MG (TUMS) TAB.CHEW PO PRN (15:15)
[2022-01-11] MEDS ORDERED: diphenhydrAMINE 25 MG TAB (BENADRYL) PO PRN (15:15)
[2022-01-11] MEDS ORDERED: NS IV 1000 ML 2,100 ML IV ONE (15:15)
[2022-01-11] MEDS ORDERED: diphenhydrAMINE 50 MG/ML INJ (BENADRYL) IVP PRN (15:15)
[2022-01-11] MEDS ORDERED: ASPIRIN E.C. 81 MG (ECOTRIN) TAB PO ONE (15:15)
[2022-01-11] MEDS ORDERED: ENOXAPARIN 100 MG/1 ML (LOVENOX) SYR SC SCH (15:15)
[2022-01-11] MEDS ORDERED: ONDANSETRON 4 MG (ZOFRAN) ORAL DISSOLVE TAB PO PRN (15:15)
[2022-01-11] MEDS ORDERED: polyethylene glycoL POWDER 17 GM (MIRALAX) PACK PO PRN (15:15)
[2022-01-11] MEDS ORDERED: LACTULOSE SYRUP 10GM/15ML (ENULOSE) 30ML UDC PO PRN (15:15)
[2022-01-11] MEDS ORDERED: ACETAMINOPHEN 325 MG TABLET PO PRN (15:15)
[2022-01-11] MEDS ORDERED: PHARMACY TO DOSE IV SCH (15:15)
[2022-01-11] MEDS ORDERED: ANTACID SUSP 30 ML UDC (MYLANTA) PO PRN (15:15)
[2022-01-11] MEDS ORDERED: BISACODYL 10 MG SUPP (DULCOLAX) PR PRN (15:15)
[2022-01-11] MEDS ORDERED: ONDANSETRON 4 MG/2 ML (SDV) Z0FRAN IV PRN (15:15)
[2022-01-11 15:51] LABS: ABG BASE EXCESS 0.2 MMOL/L (-2.5-2.5); ABG OXYGEN SATURATION 75 % (94-100); ABG PCO2 40 MMHG (35-45); ABG TCO2 26.1 MMOL/L (21.0-31.0)
[2022-01-11 15:54] LABS: ABG PO2 37 MMHG (79-93); ALLENS TEST POS; INSPIRED O2 2L; VENTILATOR NO
[2022-01-11 15:55] LABS: PATIENT TEMP 35.5
[2022-01-11] MEDS ORDERED: ASPIRIN 81 MG CHEW (CHILDREN'S ASA) PO NR (16:00)
[2022-01-11] MEDS ORDERED: CLOPIDOGREL 75 MG (PLAVIX) TABLET PO NR (16:00)
[2022-01-11] MEDS ORDERED: CARV6.252 PO (16:30)
[2022-01-11] MEDS ORDERED: OMEP20CA18 PO (16:30)
[2022-01-11] MEDS ORDERED: RT-ALBUINH IH (16:30)
[2022-01-11] MEDS ORDERED: RT-ALBUTEROL/IPRATROPIUM 3 ML (DUONEB) VIAL INH PRN (16:30)
[2022-01-11] MEDS ORDERED: FURO20TA4 PO (16:30)
[2022-01-11] MEDS ORDERED: FLUT1AER11 IH (16:30)
[2022-01-11] MEDS ORDERED: TERA5CAP10 PO (16:30)
[2022-01-11] MEDS ORDERED: AMLO-251 PO (16:30)
[2022-01-11] MEDS ORDERED: CARV6.25 PO (16:30)
[2022-01-11] MEDS ORDERED: TERA2CAP4 PO (16:30)
[2022-01-11] MEDS ORDERED: SILD100T67 PO (16:30)
[2022-01-11] MEDS: ENOXAPARIN 40 MG/0.4 ML (LOVENOX) SYR SC SCH (16:31)
[2022-01-11] MEDS: meTOprolol 5 MG/5 ML (LOPRESSOR) VIAL IV SCH ×3 (16:34→23:14)
--- NOTE | 2022-01-11 16:34 | Diagnostic Imaging Report ---
INDICATION: Pneumonia and cough. TIME OF EXAM: 4:26 p.m. COMPARISON: Correlation is made with prior chest from 01/09/2022. FINDINGS: The heart size is stable. There appears to be some minimal patchy infiltrate in the left upper lobe, new since prior chest. There may be minimal infiltrate in the right upper lobe as well. Lung bases are clear. Slight blunting of the right costophrenic angle is unchanged. There is no pneumothorax. IMPRESSION: Development of minimal patchy upper lobe infiltrates when compared with exam from two days earlier. Dictated by: Dictated on workstation # [id number]
[2022-01-11] MEDS ORDERED: VANCOMYCIN 2000 MG/NS 500 ML IVPB IV NR ×2 (17:00)
[2022-01-11] MEDS: inSUlin ASPART (NovoLOG) 1 UNIT/0.01 ML (CHARGE PER UNIT) SC SCH ×2 (17:02→21:38)
[2022-01-11] MEDS: NS IV 1000 ML 1,000 ML IV SCH ×2 (18:03→23:14)
[2022-01-11] MEDS: CEFEPIME 1,000 MG/NS 50 ML IVPB IV SCH ×4 (18:04→23:13)
[2022-01-11] MEDS: methylPREDNISolone 40 MG/ML (Solu-MEDROL) VIAL IV SCH ×2 (18:13→23:14)
[2022-01-11] MEDS: IBUPROFEN TABLET 200 MG TAB PO SCH ×2 (18:13→23:14)
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
--- NOTE | 2022-01-11 18:43 | Progress Note-Post Operative ---
Post-Operative Progess Note Surgeon (s)/Sound Printer (s) Surgeon AUGUSTIN FREDERICK DO Sound Printer: none Pre-Operative Diagnosis Venous insufficiency, Respiratory distress Post-Operative Diagnosis same Procedure & Operative Findings Date of Procedure 01/11/22 Procedure Performed/Findings Central Line placement The patient was in their bed in the ICU, was prepped and draped in the sterile fashion. A surgical pause was performed. Ultrasound was used to locate the internal jugular vein. Once located anesthetic was infiltrated above it. Using an 18 gauge finder needle and watching with the US; the right internal jugular vein was accessed. Dark non- pulsatile blood was withdrawn. The wire was inserted. US assured proper placement. The needle was removed. A [#11] blade scalpel was used to make a stab incision along the guidewire. Dilator sheath was then advanced over the wire using Seldinger technique and the dilator was removed. The Groshong catheter was inserted over the guide wire using the Seldinger technique. The Groshong wire was removed. The catheter was then accessed in all three ports without difficulty. Good flash of blood was seen and it was then flushed with saline. The catheter was sutured in place with 3-0 silk. The areas were then washed and dried. Sterile dressing was placed over incision. The patient tolerated the procedure well without complication. Anesthesia Type local lidocaine Estimated Blood Loss Estimated blood loss (mL): less than 3ml Specimens/Packing Specimens Removed I luis 2 10ml syringes of blood from the central line for the nurse, needed for labs and cultures. First, I pulled off 7ml of blood and then luis the two syringes, next put the 7ml of blood back in and finally flushed with saline. AUGUSTIN FREDERICK DO Jan 11, 2022 18:43
[2022-01-11] MEDS: AZITHROMYCIN INJECTION 500 MG in NS (IVPB) 250 ML IV SCH (18:50)
[2022-01-11] MEDS: RT-ALBUTEROL/IPRATROPIUM 3 ML (DUONEB) VIAL INH SCH ×2 (18:57→21:46)
[2022-01-11 20:43] LABS: BASOPHILS % (AUTO) 0 % (0-10); EOSINOPHILS % (AUTO) 0 % (0-10); HEMATOCRIT 39 % (40-54); LYMPHOCYTES # (AUTO) 0.7 10^3/uL (1.0-4.0); LYMPHOCYTES % (AUTO) 10 % (12-44); MEAN CORPUSCULAR HEMOGLOBIN 30 pg (25-34); MEAN CORPUSCULAR HGB CONC 33 g/dL (32-36); MEAN CORPUSCULAR VOLUME 90 fL (80-99); MEAN PLATELET VOLUME 10.5 fL (9.0-12.2); MONOCYTES # (AUTO) 0.1 10^3/uL (0.0-1.0); MONOCYTES % (AUTO) 2 % (0-12); NEUTROPHILS # (AUTO) 6.5 10^3/uL (1.8-7.8); NEUTROPHILS % (AUTO) 87 % (42-75); PLATELET COUNT 172 10^3/uL (130-400); WHITE BLOOD COUNT 7.5 10^3/uL (4.3-11.0)
[2022-01-11] MEDS ORDERED: ADVAIR HFA 115/21 MCG INHALER 8 GM IH SCH (21:00)
[2022-01-11] MEDS ORDERED: CEFEPIME INJECTION 2,000 MG in NS (IVPB) 50 ML IV SCH (21:00)
[2022-01-11] MEDS: DOCUSATE SODIUM 100 MG (COLACE) CAP PO SCH (21:00)
[2022-01-11] MEDS: SENNOSIDES 8.6 MG (SENOKOT) TAB PO SCH (21:00)
[2022-01-11 21:01] LABS: ALBUMIN 3.1 GM/DL (3.2-4.5); BILIRUBIN,TOTAL 0.7 MG/DL (0.1-1.0); CALCIUM 7.7 MG/DL (8.5-10.1); CREATININE SERUM 2.34 MG/DL (0.60-1.30); POTASSIUM 4.1 MMOL/L (3.6-5.0)
[2022-01-11 21:20] LABS: BAND NEUTROPHILS 3 %; EOSINOPHILS % (MANUAL) 2 %; LYMPHOCYTES % (MANUAL) 11 %; MONOCYTES % (MANUAL) 3 %; NEUTROPHILS % (MANUAL) 81 %; RBC MORPH NORMAL
[2022-01-11] MEDS: guaiFENesin/DM (ROBITUSSIN DM) 10 ML UDC PO PRN (21:38)
[2022-01-11] MEDS: RT--FLUTICASONE/SALMETEROL 113-14 (AIRDUO RespiCLICK) IH SCH (21:46)
[2022-01-12] VITALS (17 sets, daily range): BP systolic 115–163; BP diastolic 71–145
[2022-01-12] MEDS: guaiFENesin/DM (ROBITUSSIN DM) 10 ML UDC PO PRN (01:11)
[2022-01-12 01:24] LABS: BASOPHILS % (AUTO) 0 % (0-10); EOSINOPHILS % (AUTO) 0 % (0-10); HEMATOCRIT 41 % (40-54); HEMOGLOBIN 13.5 g/dL (13.3-17.7); LYMPHOCYTES # (AUTO) 0.6 10^3/uL (1.0-4.0); LYMPHOCYTES % (AUTO) 6 % (12-44); MEAN CORPUSCULAR HEMOGLOBIN 30 pg (25-34); MEAN CORPUSCULAR HGB CONC 33 g/dL (32-36); MEAN CORPUSCULAR VOLUME 90 fL (80-99); MEAN PLATELET VOLUME 10.2 fL (9.0-12.2); MONOCYTES # (AUTO) 0.4 10^3/uL (0.0-1.0); MONOCYTES % (AUTO) 4 % (0-12); NEUTROPHILS # (AUTO) 7.8 10^3/uL (1.8-7.8); NEUTROPHILS % (AUTO) 88 % (42-75); PLATELET COUNT 168 10^3/uL (130-400); WHITE BLOOD COUNT 8.8 10^3/uL (4.3-11.0)
[2022-01-12 01:37] LABS: ALBUMIN 3.5 GM/DL (3.2-4.5); POTASSIUM 4.3 MMOL/L (3.6-5.0)
[2022-01-12 01:38] LABS: CALCIUM 8.8 MG/DL (8.5-10.1)
[2022-01-12 01:39] LABS: TOTAL PROTEIN 6.4 GM/DL (6.4-8.2)
[2022-01-12 01:41] LABS: BILIRUBIN,TOTAL 0.6 MG/DL (0.1-1.0)
[2022-01-12 01:42] LABS: PHOSPHORUS 2.9 MG/DL (2.3-4.7)
[2022-01-12 01:43] LABS: CREATININE SERUM 2.16 MG/DL (0.60-1.30)
[2022-01-12] MEDS: RT-ALBUTEROL/IPRATROPIUM 3 ML (DUONEB) VIAL INH SCH ×6 (02:51→22:05)
[2022-01-12] MEDS: meTOprolol 5 MG/5 ML (LOPRESSOR) VIAL IV SCH ×2 (03:00→08:12)
[2022-01-12] MEDS: NS IV 1000 ML 1,000 ML IV SCH (03:35)
[2022-01-12] MEDS: methylPREDNISolone 40 MG/ML (Solu-MEDROL) VIAL IV SCH ×4 (05:26→23:56)
[2022-01-12] MEDS: inSUlin ASPART (NovoLOG) 1 UNIT/0.01 ML (CHARGE PER UNIT) SC SCH ×4 (05:31→20:35)
[2022-01-12] MEDS: IBUPROFEN TABLET 200 MG TAB PO SCH ×4 (05:36→23:56)
[2022-01-12] MEDS ORDERED: KCL 20 MEQ TAB (K-DUR) PO SCH (06:00)
[2022-01-12] MEDS ORDERED: POTASSIUM CL 10MEQ/50ML IVPB 50 ML IV SCH (06:00)
[2022-01-12] MEDS ORDERED: MAGNESIUM 1 GM/100 ML IVPB 100 ML IV SCH (06:00)
[2022-01-12] MEDS: RT--FLUTICASONE/SALMETEROL 113-14 (AIRDUO RespiCLICK) IH SCH ×2 (07:24→22:05)
--- NOTE | 2022-01-12 07:24 | Diagnostic Imaging Report ---
INDICATION: Follow-up pneumonia. Comparison with 01/11/2022. FINDINGS: There is mild bilateral basilar atelectasis. There is some alveolar infiltrate developing in the right lower lobe since previous exam. Heart is enlarged. There is a small right pleural effusion now. IMPRESSION: Increasing right lower lobe infiltrate and pleural effusion since previous study. Right jugular line is now present in good position. Dictated by: Dictated on workstation # [id number]
[2022-01-12] MEDS: DOCUSATE SODIUM 100 MG (COLACE) CAP PO SCH ×2 (08:53→20:34)
[2022-01-12] MEDS: CLOPIDOGREL 75 MG (PLAVIX) TABLET PO SCH (08:53)
[2022-01-12] MEDS: SENNOSIDES 8.6 MG (SENOKOT) TAB PO SCH ×2 (08:53→20:35)
[2022-01-12] MEDS: ASPIRIN 81 MG CHEW (CHILDREN'S ASA) PO SCH (08:53)
[2022-01-12] MEDS: CEFEPIME 1,000 MG/NS 50 ML IVPB IV SCH ×6 (08:54→23:56)
[2022-01-12] MEDS ORDERED: PANTOPRAZOLE 40 MG (PROTONIX) TAB PO SCH (09:00)
[2022-01-12] MEDS ORDERED: ASPIRIN E.C. 81 MG (ECOTRIN) TAB PO SCH (09:00)
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
[2022-01-12] MEDS ORDERED: meTOproloL SUCCINATE 50 MG (TOPROL XL) TAB PO ONE (09:45)
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
--- NOTE | 2022-01-12 11:07 | Tele-ICU Progress Note ---
Subjective Date Seen by a Provider: Jan 12, 2022 Time Seen by a Provider: 11:07 Sepsis Event Evaluation Height, Weight, BMI Height: 6'1.00" Weight: 234lbs. oz. 106.815869cq; 33.89 BMI Method:Stated Focused Exam Lactate Level 01/11/22 20:20: Lactic Acid Level 2.42*H 01/11/22 23:15: Lactic Acid Level 2.55*H 01/12/22 01:10: Lactic Acid Level 1.75 Exam Exam Patient acknowledged, consented, and participated in this virtual visit which was conducted using real time audio/video Vital Signs Date Time Temp Pulse Resp B/P (MAP) Pulse Ox O2 Delivery O2 Flow Rate FiO2 01/12/22 11:02 93 Room Air 01/12/22 08:00 Nasal Cannula 2.00 01/12/22 07:45 37.2 01/12/22 07:25 96 Nasal Cannula 2.00 01/12/22 07:00 83 01/12/22 06:00 76 21 128/76 (93) 96 Nasal Cannula 2.00 01/12/22 05:00 79 21 123/94 (104) 96 Nasal Cannula 2.00 01/12/22 04:00 87 23 133/99 (110) 98 Nasal Cannula 2.00 01/12/22 03:33 Nasal Cannula 2.00 01/12/22 03:32 36.6 Nasal Cannula 2.00 01/12/22 03:00 79 22 131/90 (104) 95 Nasal Cannula 2.00 01/12/22 02:51 97 Nasal Cannula 2.00 01/12/22 02:00 63 142/91 (108) 97 Nasal Cannula 2.00 01/12/22 01:00 70 01/12/22 01:00 92 137/74 (95) 97 Nasal Cannula 2.00 01/12/22 00:00 Nasal Cannula 2.00 01/12/22 00:00 100 24 136/71 (92) 95 Nasal Cannula 2.00 01/12/22 00:00 36.9 01/11/22 23:00 101 25 117/66 (83) 95 Nasal Cannula 2.00 01/11/22 22:00 78 22 110/71 (84) 96 Nasal Cannula 2.00 01/11/22 21:46 96 Nasal Cannula 2.00 01/11/22 21:00 97 39 117/82 (94) 93 Nasal Cannula 2.00 01/11/22 20:00 37.2 01/11/22 20:00 97 105/77 (86) 95 Nasal Cannula 2.00 01/11/22 20:00 Nasal Cannula 2.00 01/11/22 19:00 93 22 106/56 (73) 99 Nasal Cannula 2.00 01/11/22 19:00 93 01/11/22 18:57 94 Nasal Cannula 2.00 01/11/22 18:46 91 28 91/60 (72) 95 Room Air 01/11/22 18:45 89 25 01/11/22 18:30 85 25 109/73 (87) 95 Room Air 01/11/22 18:15 89 26 115/71 (84) 96 Room Air 01/11/22 18:00 90 27 109/74 (81) 97 Room Air 01/11/22 17:45 103 28 111/75 (89) 95 01/11/22 17:45 103 28 111/75 (89) 95 Room Air 01/11/22 17:31 94 20 96 Room Air 01/11/22 17:30 84 22 99/66 (73) 89 Room Air 01/11/22 17:16 83 28 98 Room Air 01/11/22 17:15 87 25 111/76 (91) Room Air 01/11/22 17:05 Nasal Cannula 2.00 01/11/22 17:01 89 21 95 Room Air 01/11/22 17:00 89 11 103/68 (82) 95 Room Air 01/11/22 16:46 85 23 95 Room Air 01/11/22 16:45 88 21 89 Room Air 01/11/22 16:31 92 96 Room Air 01/11/22 16:30 96 41 107/68 (80) 96 Room Air 01/11/22 16:17 89 01/11/22 16:16 93 18 96 Room Air 01/11/22 16:15 93 28 109/58 (85) Room Air 01/11/22 16:01 100 96 28 01/11/22 16:01 95 63 97 Room Air 01/11/22 16:00 Nasal Cannula 2.00 01/11/22 15:46 96 24 95 Room Air 01/11/22 15:31 92 32 94 Room Air 01/11/22 15:23 20 98/73 (83) 95 Room Air 01/11/22 15:16 101 16 95 Room Air 01/11/22 15:13 96 22 112/80 (88) Room Air I & O 01/12/22 07:00 Intake Total 5305 ml Output Total 1950 ml Balance 3355 ml Height & Weight Height: 6'1.00" Weight: 234lbs. oz. 106.513903kd; 33.89 BMI Method:Stated General Appearance: No Apparent Distress Gastrointestinal: non tender, soft, no organomegaly Results Lab Laboratory Tests 01/11/22 20:20 01/12/22 01:10 Assessment/Plan Assessment/Plan (Tele-ICU Physician , Progress Note ) Available chart/ vitals / labs / Images reviewed Video assessment done using teleICU camera, rest of exam as per RN Discussed with RN , EXAM PER RN Events overnight : Afebrile FiO2 - 2l I/O = pos Drips: Pressors: , hemodynamically stable Consultants: Hospital course: (01/11) 61 Y Transfer from outside ED for Pneumonia, JOSELYN, Influenza ( Dx with AECOPD and influenza 3dPTA A/P PNA , CAP , LLL - cont abx Influenza + reported - in window for tamiflu ? - as per PCP AECOPD = steroids IV 40 q 6 - ? to decrease dose - as per PCP , nebs JOSELYN / CKI - stop hydration , CR baseline Elv trop - ? type II - as per cards, no CP at present - ECHO 01/11- EF 50% + methamphetamins 01/09/22 Lines : (Central Line Necessity Reviewed) Thakkar: void OG: Nutrition: Analgesia: Anxiety/ delirium VTE Prophylaxis: lia 40 Stress Ulcer Prophylaxis: ppi Plans in collaboration with bedside consultants and IM MDs. Discussed with RN to reach out if any questions or concerns A total of 31 minutes of critical care time was devoted to this patient today, required to treat and/or prevent further deterioration of critical care condi tion ( as above ) . CLARY MARAVILLA MD Jan 12, 2022 11:07
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
[2022-01-12] MEDS: ENOXAPARIN 40 MG/0.4 ML (LOVENOX) SYR SC SCH (16:11)
[2022-01-12] MEDS: AZITHROMYCIN INJECTION 500 MG in NS (IVPB) 250 ML IV SCH (16:12)
[2022-01-12] MEDS: VANCOMYCIN 1500 MG/NS 500 ML IVPB IV SCH ×2 (17:37)
[2022-01-12] MEDS: TERAZOSIN 5 MG (HYTRIN) CAPSULE PO SCH (20:34)
[2022-01-12] MEDS: FUROSEMIDE 20 MG (LASIX) TAB PO SCH (20:34)
[2022-01-12] MEDS: PANTOPRAZOLE 20 MG TABLET (PROTONIX) PO SCH (20:34)
[2022-01-12] MEDS ORDERED: OMEPRAZOLE 20 MG (PriLOSEC) CAP NON-FORMULARY PO SCH (21:00)
[2022-01-13] MEDS: RT-ALBUTEROL/IPRATROPIUM 3 ML (DUONEB) VIAL INH SCH ×6 (02:35→22:43)
[2022-01-13 03:56] VITALS: BP 134/71
[2022-01-13 05:25] LABS: BASOPHILS % (AUTO) 0 % (0-10); EOSINOPHILS % (AUTO) 0 % (0-10); HEMATOCRIT 41 % (40-54); HEMOGLOBIN 13.5 g/dL (13.3-17.7); LYMPHOCYTES # (AUTO) 0.6 10^3/uL (1.0-4.0); LYMPHOCYTES % (AUTO) 8 % (12-44); MEAN CORPUSCULAR HEMOGLOBIN 30 pg (25-34); MEAN CORPUSCULAR HGB CONC 33 g/dL (32-36); MEAN CORPUSCULAR VOLUME 89 fL (80-99); MEAN PLATELET VOLUME 10.4 fL (9.0-12.2); MONOCYTES # (AUTO) 0.2 10^3/uL (0.0-1.0); MONOCYTES % (AUTO) 3 % (0-12); NEUTROPHILS # (AUTO) 7.2 10^3/uL (1.8-7.8); NEUTROPHILS % (AUTO) 89 % (42-75); PLATELET COUNT 174 10^3/uL (130-400); WHITE BLOOD COUNT 8.1 10^3/uL (4.3-11.0)
[2022-01-13 05:44] LABS: ALBUMIN 3.5 GM/DL (3.2-4.5); POTASSIUM 3.8 MMOL/L (3.6-5.0)
[2022-01-13 05:45] LABS: CALCIUM 9.4 MG/DL (8.5-10.1)
[2022-01-13 05:47] LABS: TOTAL PROTEIN 6.8 GM/DL (6.4-8.2)
[2022-01-13 05:48] LABS: BILIRUBIN,TOTAL 0.5 MG/DL (0.1-1.0)
[2022-01-13 05:50] LABS: CREATININE SERUM 1.67 MG/DL (0.60-1.30)
[2022-01-13] MEDS: methylPREDNISolone 40 MG/ML (Solu-MEDROL) VIAL IV SCH ×3 (05:55→18:54)
[2022-01-13] MEDS: inSUlin ASPART (NovoLOG) 1 UNIT/0.01 ML (CHARGE PER UNIT) SC SCH ×4 (05:55→20:44)
[2022-01-13] MEDS: IBUPROFEN TABLET 200 MG TAB PO SCH ×3 (05:55→18:54)
[2022-01-13 07:48] VITALS: BP 172/82
--- NOTE | 2022-01-13 07:52 | Progress Note - Hospitalist ---
Subjective HPI/CC On Admission Date Seen by Provider: Jan 13, 2022 Time Seen by Provider: 10:00 Chief Complaint: Respiratory Failure HPI: This is a 61yoWM clinic patient of [facility] who has a past medical history of current smoking and illicit drugs who presented to the ER in [place] with SOB. He was found to have Pneumonia following Influenza diagnosed several days ago in the ER and exacerbation of COPD and elevated Troponin. Cardiology has been consulted. He was placed on Broad Spectrum antibiotics. He is doing very well and we will move him to the floor. Subjective/Events-last exam Pt doing better Off O2 Lungs still very wheezy and upper respiratory Asked me if he has a terminal illness and I said if he doesn't stop smoking he will Checked meds and labs Discharged planned for tomorrow Review of Systems General: Fatigue, Malaise Pulmonary: Dyspnea Focused Exam Lactate Level 01/11/22 20:20: Lactic Acid Level 2.42*H 01/11/22 23:15: Lactic Acid Level 2.55*H 01/12/22 01:10: Lactic Acid Level 1.75 Objective Exam Vital Signs Vital Signs Date Time Temp Pulse Resp B/P (MAP) Pulse Ox O2 Delivery O2 Flow Rate FiO2 01/14/22 03:53 36.7 85 22 170/99 (122) 93 Room Air 01/13/22 22:53 20 01/13/22 20:30 2.00 Capillary Refill : General Appearance: No Apparent Distress, WD/WN, Chronically ill Respiratory: No Accessory Muscle Use, No Respiratory Distress, Decreased Breath Sounds, Wheezing Cardiovascular: Regular Rate, Rhythm Neurologic/Psychiatric: Alert, Oriented x3, No Motor/Sensory Deficits, Normal Mood/Affect Results/Procedures Lab Laboratory Tests 01/14/22 04:52 Patient resulted labs reviewed. Assessment/Plan Assessment and Plan Assess & Plan/Chief Complaint Assessment: Sepsis Bilateral pneumonia Recent influenza Exacerbation COPD Elevated troponin Smoker Illicit drug use Chronic kidney disease Bacteremia? Staph epidermidis Plan: Antibiotics Transfer to fourth floor IV steroids Cardiology appreciated 01/13/2022: Continue antibiotics Smoking cessation discussed Continue Vanco Diagnosis/Problems Diagnosis/Problems (1) Pneumonia (2) Illicit drug use Status: Acute (3) Chronic renal disease Status: Acute (4) Influenza A Status: Acute (5) COPD (chronic obstructive pulmonary disease) Status: Acute (6) Hypertension Status: Acute BEAR JAIME DO Jan 13, 2022 07:52
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
[2022-01-13] MEDS: CLOPIDOGREL 75 MG (PLAVIX) TABLET PO SCH (08:48)
[2022-01-13] MEDS: FUROSEMIDE 20 MG (LASIX) TAB PO SCH ×2 (08:48→20:43)
[2022-01-13] MEDS: TERAZOSIN 1 MG CAP (HYTRIN) PO SCH (08:49)
[2022-01-13] MEDS: ASPIRIN 81 MG CHEW (CHILDREN'S ASA) PO SCH (08:50)
[2022-01-13] MEDS: amLODIPine 10 MG (NORVASC) TAB PO SCH (08:50)
[2022-01-13] MEDS: PANTOPRAZOLE 20 MG TABLET (PROTONIX) PO SCH ×2 (08:50→20:43)
[2022-01-13] MEDS: meTOproloL SUCCINATE 50 MG (TOPROL XL) TAB PO SCH (08:50)
[2022-01-13] MEDS: DOCUSATE SODIUM 100 MG (COLACE) CAP PO SCH ×2 (08:51→20:43)
[2022-01-13] MEDS: CEFEPIME 1,000 MG/NS 50 ML IVPB IV SCH ×4 (08:51→16:39)
[2022-01-13] MEDS: SENNOSIDES 8.6 MG (SENOKOT) TAB PO SCH ×2 (08:52→20:43)
[2022-01-13] MEDS ORDERED: NON-FORMULARY MEDICATION 1 EA EA (Terazosin HCl 2 MG) PO SCH (09:00)
--- NOTE | 2022-01-13 09:29 | Physical Therapy Progress Note ---
Therapy Progress Note Patient is up independently in room without difficulty. No skilled PT indicated. SALO BORJAS PT Jan 13, 2022 09:29
--- NOTE | 2022-01-13 09:41 | Occ Therapy Progress Note ---
Therapy Progress Note Per RN, patient is up independently in room and able to complete all adls without difficulty. No skilled OT services warranted at this time. OT to discharge. Dahlia Tracy OT Jan 13, 2022 09:41
[2022-01-13 11:29] VITALS: BP 162/88
[2022-01-13] MEDS: RT--FLUTICASONE/SALMETEROL 113-14 (AIRDUO RespiCLICK) IH SCH ×2 (12:00→19:38)
[2022-01-13] MEDS ORDERED: TROUGH ORDER-PHARMACY XX NR (16:00)
[2022-01-13 16:17] VITALS: BP 155/90
[2022-01-13] MEDS ORDERED: AZITHROMYCIN 250 MG TAB (ZITHROMAX) PO SCH (16:30)
[2022-01-13] MEDS: ENOXAPARIN 40 MG/0.4 ML (LOVENOX) SYR SC SCH (16:40)
[2022-01-13 20:17] VITALS: BP 173/92
[2022-01-13] MEDS: TERAZOSIN 5 MG (HYTRIN) CAPSULE PO SCH (20:43)
[2022-01-13] MEDS: guaiFENesin/DM (ROBITUSSIN DM) 10 ML UDC PO PRN (20:44)
[2022-01-13] MEDS: VANCOMYCIN 1500 MG/NS 500 ML IVPB IV SCH ×2 (20:44)
[2022-01-13 23:56] VITALS: BP 167/97
[2022-01-14] MEDS: CEFEPIME 1,000 MG/NS 50 ML IVPB IV SCH ×4 (00:12→07:58)
[2022-01-14] MEDS: methylPREDNISolone 40 MG/ML (Solu-MEDROL) VIAL IV SCH ×3 (00:12→11:04)
[2022-01-14] MEDS: IBUPROFEN TABLET 200 MG TAB PO SCH ×3 (00:12→11:05)
[2022-01-14 03:53] VITALS: BP 170/99
[2022-01-14 05:08] LABS: BASOPHILS % (AUTO) 0 % (0-10); EOSINOPHILS % (AUTO) 0 % (0-10); HEMATOCRIT 41 % (40-54); HEMOGLOBIN 13.6 g/dL (13.3-17.7); LYMPHOCYTES # (AUTO) 0.8 10^3/uL (1.0-4.0); LYMPHOCYTES % (AUTO) 10 % (12-44); MEAN CORPUSCULAR HEMOGLOBIN 29 pg (25-34); MEAN CORPUSCULAR HGB CONC 33 g/dL (32-36); MEAN CORPUSCULAR VOLUME 89 fL (80-99); MEAN PLATELET VOLUME 10.6 fL (9.0-12.2); MONOCYTES # (AUTO) 0.2 10^3/uL (0.0-1.0); MONOCYTES % (AUTO) 3 % (0-12); NEUTROPHILS # (AUTO) 7.1 10^3/uL (1.8-7.8); NEUTROPHILS % (AUTO) 86 % (42-75); PLATELET COUNT 202 10^3/uL (130-400); WHITE BLOOD COUNT 8.3 10^3/uL (4.3-11.0)
[2022-01-14 05:23] LABS: ALBUMIN 3.6 GM/DL (3.2-4.5)
[2022-01-14 05:24] LABS: POTASSIUM 3.6 MMOL/L (3.6-5.0)
[2022-01-14 05:25] LABS: CALCIUM 9.7 MG/DL (8.5-10.1)
[2022-01-14 05:26] LABS: TOTAL PROTEIN 6.8 GM/DL (6.4-8.2)
[2022-01-14 05:28] LABS: BILIRUBIN,TOTAL 0.5 MG/DL (0.1-1.0)
[2022-01-14 05:30] LABS: CREATININE SERUM 1.48 MG/DL (0.60-1.30)
[2022-01-14] MEDS: inSUlin ASPART (NovoLOG) 1 UNIT/0.01 ML (CHARGE PER UNIT) SC SCH ×2 (05:34→11:58)
[2022-01-14 07:48] VITALS: BP 172/105
[2022-01-14 07:49] VITALS: BP 176/90
[2022-01-14] MEDS: TERAZOSIN 1 MG CAP (HYTRIN) PO SCH (07:56)
[2022-01-14] MEDS: PANTOPRAZOLE 20 MG TABLET (PROTONIX) PO SCH (07:57)
[2022-01-14] MEDS: ASPIRIN 81 MG CHEW (CHILDREN'S ASA) PO SCH (07:57)
[2022-01-14] MEDS: CLOPIDOGREL 75 MG (PLAVIX) TABLET PO SCH (07:57)
[2022-01-14] MEDS: FUROSEMIDE 20 MG (LASIX) TAB PO SCH (07:57)
[2022-01-14] MEDS: meTOproloL SUCCINATE 50 MG (TOPROL XL) TAB PO SCH (07:57)
[2022-01-14] MEDS: DOCUSATE SODIUM 100 MG (COLACE) CAP PO SCH (07:57)
[2022-01-14] MEDS: amLODIPine 10 MG (NORVASC) TAB PO SCH (07:57)
[2022-01-14] MEDS: SENNOSIDES 8.6 MG (SENOKOT) TAB PO SCH (07:57)
[2022-01-14] MEDS ORDERED: RT-ALBUTEROL/IPRATROPIUM 3 ML (DUONEB) VIAL INH SCH (08:00)
[2022-01-14] MEDS: RT--FLUTICASONE/SALMETEROL 113-14 (AIRDUO RespiCLICK) IH SCH (10:06)
[2022-01-14 11:36] VITALS: BP 172/102
[2022-01-14] MEDS ORDERED: OXC5T PO (11:42)
[2022-01-14] MEDS ORDERED: ASPI81TA64 PO (11:42)
[2022-01-14] MEDS ORDERED: PRED10TA22 PO (11:42)
[2022-01-14] MEDS ORDERED: CLOP75TA28 PO (11:42)
[2022-01-14] MEDS ORDERED: AMOX1TAB12 PO (11:42)
[2022-01-14] MEDS ORDERED: METO50TA7 PO (11:42)
--- NOTE | 2022-01-14 11:43 | Discharge Summary ---
Discharge Summary Hospital Course Was the Problem List Reviewed?: Yes Problems/Dx: (1) Pneumonia (2) Illicit drug use Status: Acute (3) Chronic renal disease Status: Acute (4) Influenza A Status: Acute (5) COPD (chronic obstructive pulmonary disease) Status: Acute (6) Hypertension Status: Acute Hospital Course Date of Admission: Jan 11, 2022 at 15:12 Admission Diagnosis : [place] Physician/[place] [place] Date of Discharge: 01/14/22 Discharge Diagnosis: Pneumonia, respiratory insufficiency, influenza A, hypertension Hospital Course: Patient had an uneventful but complicated hospital course after he was admitted from [facility] for respiratory insufficiency from influenza A with worsening kidney function and bilateral lobar pneumonia. He was placed on IV antibiotics and he was past the timeframe for Tamiflu benefit. IV fluids initiated and cardiology saw him for elevated troponin. Overall patient improved and smoking cessation counseling and IV steroids were transitioned to oral and blood cultures were assumed to be contamination with staph epidermidis so he was discharged in improved condition. Labs and Pending Lab Test: Laboratory Tests 01/13/22 16:20: Glucometer 271H 01/13/22 18:35: Vancomycin Level Trough 9.9L 01/13/22 20:15: Glucometer 326H 01/14/22 04:52: White Blood Count 8.3, Red Blood Count 4.68, Hemoglobin 13.6, Hematocrit 41, Mean Corpuscular Volume 89, Mean Corpuscular Hemoglobin 29, Mean Corpuscular Hemoglobin Concent 33, Red Cell Distribution Width 14.6H, Platelet Count 202, Mean Platelet Volume 10.6, Immature Granulocyte % (Auto) 1, Neutrophils (%) (Auto) 86H, Lymphocytes (%) (Auto) 10L, Monocytes (%) (Auto) 3, Eosinophils (%) (Auto) 0, Basophils (%) (Auto) 0, Neutrophils # (Auto) 7.1, Lymphocytes # (Auto) 0.8L, Monocytes # (Auto) 0.2, Eosinophils # (Auto) 0.0, Basophils # (Auto) 0.0, Immature Granulocyte # (Auto) 0.1, Sodium Level 138, Potassium Level 3.6, Chloride Level 100, Carbon Dioxide Level 25, Anion Gap 13, Blood Urea Nitrogen 30H, Creatinine 1.48H, Estimat Glomerular Filtration Rate 54, BUN/Creatinine Ratio 20, Glucose Level 188H, Calcium Level 9.7, Corrected Calcium 10.0, Total Bilirubin 0.5, Aspartate Amino Transf (AST/SGOT) 20, Alanine Aminotransferase (ALT/SGPT) 26, Alkaline Phosphatase 91, Total Protein 6.8, Albumin 3.6 01/14/22 11:34: Glucometer 340H Microbiology 01/11/22 Blood Culture - Preliminary, Resulted No growth 01/11/22 MRSA Screen - Final, Complete MRSA not isolated Home Meds Active Amox Tr-K Clv 875-125 mg Tab (Amoxicillin/Potassium Clav) 1 Each Tablet 1 Each PO BID Prednisone 10 Mg Tab.ds.pk 10 Mg PO DAILY Take 6 tabs(60mg)daily,decrease by 1 tab(10MG)daily. Oxyir Tablet (Oxycodone HCl) 5 Mg Tab 5 Mg PO Q4HR PRN Children's Aspirin (Aspirin) 81 Mg Tab.chew 81 Mg PO DAILY Metoprolol Succinate 50 Mg Tab.er.24h 50 Mg PO DAILY Clopidogrel (Clopidogrel Bisulfate) 75 Mg Tablet 75 Mg PO DAILY Reported Airduo Digihaler 113-14 Mcg (Fluticasone Propion/Salmeterol) 1 Each Aer.pw.bas 1 Each IH BID Proair Hfa (Albuterol Sulfate) 1 Puff Puff 2 Puff IH Q4H PRN Carvedilol 6.25 Mg Tablet 6.25 Mg PO HS Sildenafil Citrate 100 Mg Tablet 50-100 Mg PO UD PRN Coreg (Carvedilol) 6.25 Mg Tablet 12.5 Mg PO DAILY TAKES 2 (6.25MG) TABS Omeprazole 20 Mg Capsule.dr 20 Mg PO BID Amlodipine Besylate 10 Mg Tablet 10 Mg PO DAILY Terazosin HCl 5 Mg Capsule 5 Mg PO HS Terazosin HCl 2 Mg Capsule 2 Mg PO DAILY Furosemide 20 Mg Tablet 20 Mg PO BID Assessment/Pt Instructions PCP in 1 week Discharge Planning: <30 minutes discharge planning Discharge Instructions Discharge Diet: No Restrictions Activity as Tolerated: Yes Discharge Physical Examination Vital Signs Vital Signs Date Time Temp Pulse Resp B/P (MAP) Pulse Ox O2 Delivery O2 Flow Rate FiO2 01/14/22 11:36 71 20 172/102 (125) 91 Room Air 01/14/22 07:48 37.0 01/13/22 22:53 20 01/13/22 20:30 2.00 General Appearance: No Apparent Distress, WD/WN, Chronically ill Allergies: Coded Allergies: codeine (Verified Allergy, Intermediate, Rash, 01/11/22) rash and itching Discharge Summary Date of Admission Jan 11, 2022 at 15:12 Date of Discharge Discharge Date: Jan 14, 2022 Admission Diagnosis Assessment: Sepsis Bilateral pneumonia Recent influenza Exacerbation COPD Elevated troponin Smoker Illicit drug use Chronic kidney disease Plan: Antibiotics Transfer to fourth floor IV steroids Cardiology appreciated Discharge Diagnosis Assessment: Sepsis Bilateral pneumonia Recent influenza Exacerbation COPD Elevated troponin Smoker Illicit drug use Chronic kidney disease Bacteremia? Staph epidermidis Plan: Antibiotics Transfer to fourth floor IV steroids Cardiology appreciated 01/13/2022: Continue antibiotics Smoking cessation discussed Continue Vanco (1) Pneumonia (2) Illicit drug use Status: Acute (3) Chronic renal disease Status: Acute (4) Influenza A Status: Acute (5) COPD (chronic obstructive pulmonary disease) Status: Acute (6) Hypertension Status: Acute BEAR JAIME DO Jan 14, 2022 11:43
[2022-01-14] MEDS ORDERED: VANCOMYCIN 1,750 MG/NS 500 ML IVPB IV SCH ×2 (12:00)
[2022-01-14] MEDS ORDERED: CEFEPIME 1,000 MG/NS 50 ML IVPB IV SCH ×2 (12:00)
[2022-01-14] MEDS ORDERED: cloNIDine 0.2 MG (CATAPRES) TAB PO NR (12:30)
[2022-01-14 13:40] VITALS: BP 172/102
== END 2022-01-14 13:46 | disposition home or self-care (01) | DRG 871 ==
LOC: ICU 15:12 → 4TH 01-12 14:15
PROVIDERS: ADMIT Internal Medicine; ATTEND Internal Medicine
PROC: 02HV33Z Insertion of Infusion Device into Superior Vena Cava, Percutaneous Approach (ICD-10-PCS; principal; 2022-01-11)
DX: A41.9 Sepsis, unspecified organism (principal); J10.00 Influenza due to other identified influenza virus with unspecified type of pneumonia; I21.A1 Myocardial infarction type 2; J96.90 Respiratory failure, unspecified, unspecified whether with hypoxia or hypercapnia; J44.0 Chronic obstructive pulmonary disease with (acute) lower respiratory infection; J44.1 Chronic obstructive pulmonary disease with (acute) exacerbation; N17.9 Acute kidney failure, unspecified; N18.4 Chronic kidney disease, stage 4 (severe); I12.9 Hypertensive chronic kidney disease with stage 1 through stage 4 chronic kidney disease, or unspecified chronic kidney disease; F17.210 Nicotine dependence, cigarettes, uncomplicated; B95.8 Unspecified staphylococcus as the cause of diseases classified elsewhere; I87.2 Venous insufficiency (chronic) (peripheral); Z82.49 Family history of ischemic heart disease and other diseases of the circulatory system
CPT/HCPCS: 36415; 71045; 80053; 80202; 82805; 82947; 83605; 83735; 84100; 84145; 84484; 85007; 85025; 85027; 85379; 87040; 87077; 87081; 87186; 93306; 94640; 94664; 94760